=== PATIENT | male | born 1965 | race Caucasian/White ===

== ENCOUNTER 2021-12-23 07:11 | Outpatient (REF) | payer OTHER, SELFPAY ==
[2021-12-23 08:03] LABS: Hematocrit 48.6 % (42.0-52.0); Hemoglobin 16.5 g/dl (14.0-18.0); Mean Corpuscular Hemoglobin 32.9 pg (27.0-33.0); Mean Platelet Volume 9.7 fL (9.4-12.4); Platelet Count 184 X10*3/uL (160-400); Red Blood Count 5.01 X10*6/uL (4.60-5.80); Red Cell Distribution Width 11.7 % (11.0-16.0); White Blood Count 6.2 X10*3/uL (4.8-10.8)
[2021-12-23 08:27] LABS: Alanine Aminotransferase 64 U/L (0-40); Albumin Level 4.1 g/dL (3.5-5.0); Alkaline Phosphatase 84 U/L (39-117); Anion Gap 11 (12-20); Aspartate Amino Transferase 31 U/L (5-37); Bilirubin Direct 0.2 mg/dL (0.0-0.5); Bilirubin Total 0.6 mg/dL (0.0-1.0); Blood Urea Nitrogen 8 mg/dL (9-16); Calcium 9.5 mg/dL (8.4-10.2); Carbon Dioxide 29 mmol/L (22-29); Chloride 100 mmol/L (96-108); Cholesterol 136 mg/dL; Estimated Glomerular Filt Rate > 60; Glucose Random 349 mg/dL (60-115); HDL Cholesterol 27 mg/dL; Potassium 5.4 mmol/L (3.3-5.1); Sodium 135 mmol/L (135-145); Total Protein 6.9 g/dL (6.5-8.0); Triglycerides 481 mg/dL
[2021-12-23 08:49] LABS: Thyroid Stimulating Hormone 0.98 uIU/mL (0.32-4.0)
[2021-12-23 08:51] LABS: Appearance Urine CLEAR; Color Urine YELLOW; Glucose Urine UA >=1000 MG/DL (NEG); Leukocyte Esterase Urine NEG (NEG); Nitrite Urine NEG (NEG); Specific Gravity - Urine >= 1.030 (1.005-1.025); Urine Blood NEG (NEG); Urine Ketones NEG (NEG); Urine Protein NEG (NEG-TRACE)
[2021-12-23 09:13] LABS: Mucus Urine 2+ /LPF; RBC Urine 0 /HPF (0); Squamous Epithelial Cell Urine 1+ /LPF; WBC Urine 0 /HPF (0-4)
== END 2021-12-23 07:12 | disposition home or self-care (01) ==
LOC: HO.LAB 07:11
PROVIDERS: PCP Physician Assistant; Visit Provider Internal Medicine
DX: N50.89 Other specified disorders of the male genital organs (principal)
CPT/HCPCS: 36415; 80048; 80061; 80076; 81001; 84443; 85027

== ENCOUNTER 2021-12-30 10:27 | Outpatient (REF) | payer OTHER, SELFPAY ==
[2021-12-30 11:30] LABS: Estimated Average Glucose 289 mg/dL; Hemoglobin A1c % 11.7 %
== END 2021-12-30 10:28 | disposition home or self-care (01) ==
LOC: HO.LAB 10:27
PROVIDERS: PCP Physician Assistant; Visit Provider Physician Assistant
DX: R73.9 Hyperglycemia, unspecified (principal)
CPT/HCPCS: 36415; 83036

== ENCOUNTER 2022-01-25 15:19 | Outpatient (REF) | payer OTHER, SELFPAY ==
--- NOTE | ~2022-01-25 | US_ITS ---
EXAMINATION: US SCROTUM CLINICAL INFORMATION: Other specified disorders of the male genital organs. COMPARISON: None TECHNIQUE: A sonogram of the scrotum was performed assessing hatfield-scale appearance and color Doppler flow. Spectral Doppler analysis of the arterial and venous flow were performed in the testes bilaterally. FINDINGS: RIGHT: Right testicle measures 5.6 x 3.1 x 4.2 cm, volume 38.7 mL. No focal testicular parenchymal lesions are visualized. Color Doppler flow in the right testicle is slightly reduced compared to the left. Normal arterial and venous waveforms are documented and this may be due to the large hydrocele. There is a right appendix testis. No right varicocele is seen. There is a large right hydrocele. The right epididymis is not well visualized. LEFT: Left testicle measures 4.2 x 2.5 x 3.0 cm, volume 16.4 mL. No focal testicular parenchymal lesions are visualized. Spectral Doppler analysis of the arterial and venous flow is normal in the left testis. Left epididymal head is normal in size. There is a left appendix epididymis. No left varicocele is seen. There is a small left hydrocele. Left epididymal Doppler flow is normal. US/US scrotum doppler IMPRESSION: Large right hydrocele and small left hydrocele.
== END 2022-01-25 15:20 | disposition home or self-care (01) ==
LOC: HO.US 15:19
PROVIDERS: PCP Physician Assistant; Visit Provider Internal Medicine
DX: N50.89 Other specified disorders of the male genital organs (principal)
CPT/HCPCS: 93975

== ENCOUNTER 2022-03-07 09:24 | Emergency (ER) | payer OTHER, SELFPAY ==
--- NOTE | ~2022-03-07 | US_ITS ---
EXAMINATION: US SCROTUM CLINICAL INFORMATION: Swollen right testicle. Increased pain.. COMPARISON: Scrotal ultrasound 01/25/2022 TECHNIQUE: A sonogram of the scrotum was performed assessing hatfield-scale appearance and color Doppler flow. Spectral Doppler analysis of the arterial and venous flow were performed in the testes bilaterally. FINDINGS: RIGHT: Right testicle measures 5.3 x 1.8 x 4.1 cm, volume 20 mL. No focal testicular parenchymal lesions are visualized. Spectral Doppler analysis of the arterial and venous flow is demonstrated in the right testis. Right appendix testis is again noted. Right epididymis not clearly visualized. There is a large right-sided hydrocele which measures 13 cm in maximum dimension, grossly similar in size to imaging from January 25. There is skin thickening of the right hemiscrotum with associated edema. LEFT: Left testicle measures 4.1 x 2.6 x 2.7 cm, volume 15 mL. No focal testicular parenchymal lesions are visualized. Spectral Doppler analysis of the arterial and venous flow is normal in the left testis. Left appendix testis is again noted. Left epididymal head is normal in size. Tiny left-sided hydrocele. No varicocele. Left epididymal Doppler flow is normal. US/US scrotum doppler IMPRESSION: -Large right-sided hydrocele is again noted. There is overlying thickening of the right hemiscrotum with associated edema. -Both testicles demonstrate normal arterial and venous waveforms.
--- NOTE | ~2022-03-07 | US_ITS ---
EXAMINATION: US SCROTUM CLINICAL INFORMATION: Swollen right testicle. Increased pain.. COMPARISON: Scrotal ultrasound 01/25/2022 TECHNIQUE: A sonogram of the scrotum was performed assessing hatfield-scale appearance and color Doppler flow. Spectral Doppler analysis of the arterial and venous flow were performed in the testes bilaterally. FINDINGS: RIGHT: Right testicle measures 5.3 x 1.8 x 4.1 cm, volume 20 mL. No focal testicular parenchymal lesions are visualized. Spectral Doppler analysis of the arterial and venous flow is demonstrated in the right testis. Right appendix testis is again noted. Right epididymis not clearly visualized. There is a large right-sided hydrocele which measures 13 cm in maximum dimension, grossly similar in size to imaging from January 25. There is skin thickening of the right hemiscrotum with associated edema. LEFT: Left testicle measures 4.1 x 2.6 x 2.7 cm, volume 15 mL. No focal testicular parenchymal lesions are visualized. Spectral Doppler analysis of the arterial and venous flow is normal in the left testis. Left appendix testis is again noted. Left epididymal head is normal in size. Tiny left-sided hydrocele. No varicocele. Left epididymal Doppler flow is normal. US/US scrotum IMPRESSION: -Large right-sided hydrocele is again noted. There is overlying thickening of the right hemiscrotum with associated edema. -Both testicles demonstrate normal arterial and venous waveforms.
[2022-03-07 09:31] VITALS: BP 170/95; PULSE 108; RESP 18; TEMP 36.4; O2SAT 99; BMI 34.0
--- NOTE | 2022-03-07 10:27 | ED.MALEGU ---
HPI - Male Genitourinary General Chief complaint: Urogenital-Male <JOSE R Zepeda - Last Filed: 03/07/22 12:40> Stated complaint: SWOLLEN TESTICLE <JOSE R Zepeda Last Filed: 03/07/22 12:40> Time Seen by Provider: 03/07/22 09:43 <JOSE R Zepeda Last Filed: 03/07/22 12:40> Source: patient <JOSE R Zepeda Last Filed: 03/07/22 12:40> Mode of arrival: ambulatory <JOSE R Zepeda Last Filed: 03/07/22 12:40> History of Present Illness HPI Narrative: 56-year-old male with a past medical history of hydrocele's from US on 01/25/22, presenting to the ED complaining sudden onset right testicular pain and worsening swelling since 02:30AM. Admits pain has been constant since start, states feels like testicle is riding high. Admits has follow-up with Urology next month. Denies trauma/injury, penile discharge, dysuria/hematuria, abdominal pain, nausea, vomiting, flank pain <JOSE R Zepeda Last Filed: 03/07/22 12:40> MD Complaint: testicle pain and testicle swelling <JOSE R Zepeda Last Filed: 03/07/22 12:40> Onset (ago): hour(s) <JOSE R Zepeda Last Filed: 03/07/22 12:40> Duration: constant <JOSE R Zepeda Last Filed: 03/07/22 12:40> Related Data Home medications: Previous Rx's Medication Instructions Recorded atorvastatin 80 mg tablet 80 mg PO BEDTIME 90 Days #90 tab 03/20/21 fluticasone 250 mcg-salmeterol 50 1 inh INHALATION BID #60 ea 09/07/21 mcg/dose blistr powdr for inhalation (Advair Diskus) allopurinol 100 mg tablet 100 mg PO DAILY #90 tab 12/26/21 metformin 500 mg tablet 500 mg PO BID 30 Days #60 tab 01/01/22 cephalexin 500 mg capsule 500 mg PO QID 7 Days #28 cap 03/07/22 clotrimazole 1 % topical cream 1 appl TOPICAL BID 14 Days #30 g 03/07/22 (Lotrimin AF (clotrimazole)) metformin 500 mg tablet 500 mg PO BID 30 Days #60 tab 03/07/22 <JOSE R Zepeda - Last Filed: 03/07/22 12:40> Allergies/Adverse reactions: Allergies Allergy/AdvReac Type Severity Reaction Status Date / Time acetaminophen [Vicodin] Allergy Unknown upset Verified 02/02/22 11:50 stomach codeine [CODEINE] AdvReac Intermediate STOMACH Verified 02/02/22 11:50 UPSET hydrocodone [From VICODIN] AdvReac Intermediate STOMACH Verified 02/02/22 11:50 UPSET <JOSE R Zepeda Last Filed: 03/07/22 12:40> Review of Systems Review of Systems: Constitutional: No Fever, No Chills, No Fatigue, No Malaise ENT/Mouth: No Ear Pain, No Nasal Congestion, No sore throat, No Swallowing Difficulty Eyes: No Eye Pain, No Swelling, No Redness Cardiovascular: No Chest Pain, No SOB, No Palpitations Respiratory: No Cough, No Dyspnea Gastrointestinal: No Nausea, No Vomiting, No Diarrhea, No Constipation, No Abdominal pain Genitourinary: +testicular/scrotal swelling, +testicular pain, No penile discharge, No Dysuria, No Hematuria, No Urinary Incontinence/retention, No Flank Pain, No Urinary Flow Changes Musculoskeletal: No joint pain, No Myalgias, No Joint Swelling Skin: No Skin Lesions, No rash Neuro: No Weakness, No Numbness, No Headache <JOSE R Zepeda Last Filed: 03/07/22 12:40> Yes all other systems are reviewed and are negative <JOSE R Zepeda Last Filed: 03/07/22 12:40> [facility] Past Medical History Attestation statement: The following information was validated with the patient. <JOSE R Zepeda Last Filed: 03/07/22 12:40> Medical History: Medical History Left hydrocele <JOSE R Zepeda Last Filed: 03/07/22 12:40> Surgical History: Surgical History History of carpal tunnel release <JOSE R Zepeda - Last Filed: 03/07/22 12:40> Family History Family History: Family History Father No problems noted. 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 Cognitive needs: No Hearing needs: No Vision needs: Yes (Glasses) <JOSE R Zepeda - Last Filed: 03/07/22 12:40> Physical Exam Vital Signs: Vital Signs: Last Vital Signs Temp 97.6 F 03/07/22 09:31 Pulse 108 H 03/07/22 09:31 Resp 18 03/07/22 09:31 BP 170/95 H 03/07/22 09:31 Pulse Ox 99 03/07/22 09:31 BMI result Body Mass Index 34.0 <JOSE R Zepeda - Last Filed: 03/07/22 12:40> Vital Signs: Last Vital Signs Temp 97.6 F 03/07/22 09:31 Pulse 108 H 03/07/22 09:31 Resp 18 03/07/22 09:31 BP 170/95 H 03/07/22 09:31 Pulse Ox 99 03/07/22 09:31 BMI result Body Mass Index 34.0 <Fredo Dove MD - Last Filed: 03/07/22 12:24> Const: General: cooperative, healthy appearing and no acute distress <JOSE R Zepeda - Last Filed: 03/07/22 12:40> Orientation/consciousness: patient oriented x3 <JOSE R Zepeda - Last Filed: 03/07/22 12:40> Limitations: no limitations <JOSE R Zepeda - Last Filed: 03/07/22 12:40> HEENT: Head: Yes normal to inspection and Yes atraumatic <JOSE R Zepeda - Last Filed: 03/07/22 12:40> Ears: hearing grossly normal bilaterally <JOSE R Zepeda - Last Filed: 03/07/22 12:40> General nose exam: Normal external nose present <JOSE R Zepeda Last Filed: 03/07/22 12:40> Face and sinus: Yes normal facial exam <JOSE R Zepeda - Last Filed: 03/07/22 12:40> Eyes: General: appearance normal, both eyes and all related structures <JOSE R Zepeda Last Filed: 03/07/22 12:40> EOM: EOMs intact bilaterally <JOSE R Zepeda - Last Filed: 03/07/22 12:40> Neck: Neck: Yes normal visual inspection and Yes no meningeal signs <JOSE R Zepeda - Last Filed: 03/07/22 12:40> Resp: Effort & Inspection: normal respiratory effort and no respiratory distress <Angie Akers OR - Last Filed: 03/07/22 12:40> Cardio: Rate: regular rate <JOSE R Zepeda - Last Filed: 03/07/22 12:40> Heart sounds: S1 normal heart sound present and S2 normal heart sound present <Angie Akers [facility] Last Filed: 03/07/22 12:40> GI: Inspection: Yes normal to inspection <Angie Akers [facility] Last Filed: 03/07/22 12:40> Palpation (GI): Soft to palpation, nontender, no guarding and not rigid <JOSE R Zepeda - Last Filed: 03/07/22 12:40> : Penis: circumcised, erythematous, Localized penile swelling present and other (+skin thickening and cracking to neck of glans) <JOSE R Zepeda - Last Filed: 03/07/22 12:40> Meatus: meatus normal <JOSE R Zepeda - Last Filed: 03/07/22 12:40> Scrotum: no ecchymosis, erythematous bilateral, Hydrocele present bilateral (>right), no masses, scrotal swelling on the right and no ulcerations <JOSE R Zepeda - Last Filed: 03/07/22 12:40> Testes: testicular tenderness on the right and high-riding testicle on the right <JOSE R Zepeda Last Filed: 03/07/22 12:40> Skin: Rashes: no rashes <JOSE R Zepeda Last Filed: 03/07/22 12:40> Wounds: no wounds <JOSE R Zepeda Last Filed: 03/07/22 12:40> Neuro: General: patient oriented x3, tone normal and no meningeal signs <JOSE R Zepeda - Last Filed: 03/07/22 12:40> Gait exam (Neuro): Normal gait present <JOSE R Zepeda Last Filed: 03/07/22 12:40> Extrem: General: Yes normal to inspection <JOSE R Zepeda Last Filed: 03/07/22 12:40> Course Course Course Narrative: -UA with greater than 1000 ketones. Not infected. (similar to prior UA in December) > will obtain POC - POC 368, patient asymptomatic, states was prescribed metformin by PCP however is non compliant. Stressed importance of compliance with metformin with patient in needed close follow-up with his PCP for repeat glucose and monitoring. Low concern for DKA/ HHS >> patient given 1st dose of metformin and Keflex in the ED US scrotum IMPRESSION: -Large right-sided hydrocele is again noted. There is overlying thickening of the right hemiscrotum with associated edema. -Both testicles demonstrate normal arterial and venous waveforms. > case discussed with Dr. Dove who also evaluated patient and agrees with plan, will DC patient home with treatment for cellulitis, Gaby and new prescription for metformin <JOSE R Zepeda - Last Filed: 03/07/22 12:40> Reevaluation(s) Reevaluation #1: I agree with history and my exam is Obese Patient with right large hydrocele, cellulitis and candidal balanitis. Will treat with Keflex, lotrimin and make sure the patient starts glucophage. <Fredo Dove MD - Last Filed: 03/07/22 12:24> Time: 12:24 <Fredo Dove MD - Last Filed: 03/07/22 12:24> MDM - Male Genitourinary MDM Narrative Medical decision making narrative: 56-year-old male with a past medical history of hydrocele's from US on 01/25/22, presenting to the ED complaining sudden onset right testicular pain and worsening swelling since 02:30AM. On exam tachycardic likely from pain, physical exam as above with noted diffuse erythema to penis and bilateral scrotum, high-riding right testicle with tenderness and large right hydrocele. No evidence of Jose Raul gangrene. Abdomen soft/nontender. Concern for testicular torsion vs hydrocele vs epididymitis/orchitis vs cellulitis vs fungal infection Low concern for severe sepsis Plan: CT NG, UA, scrotal ultrasound <JOSE R Zepeda - Last Filed: 03/07/22 12:40> Differential Diagnosis Differential diagnosis: Likely epididymitis <JOSE R Zepeda - Last Filed: 03/07/22 12:40> Medical Records Attestation: I reviewed the patient's medical records. <JOSE R Zepeda - Last Filed: 03/07/22 12:40> Lab Data Attestation: I reviewed the patient's lab results. <JOSE R Zepeda - Last Filed: 03/07/22 12:40> Labs: Lab Results 03/07/22 03/07/22 Range/Units 11:01 12:08 POC Glucose 368 H* (60-115) mg/dL Urine Color STRAW Urine Appearance CLEAR Urine pH 6.0 (5.0-8.0) Ur Specific [place] 1.010 (1.005-1.025) Urine Protein NEG (NEG-TRACE) MG/DL Urine Glucose (UA) >=1000 H (NEG) MG/DL Urine Ketones NEG (NEG) MG/DL Urine Blood NEG (NEG) Urine Nitrite NEG (NEG) Ur Leukocyte Esterase NEG (NEG) Urine RBC 0 (0) /HPF Urine WBC 0-2 (0-4) /HPF Ur Squamous Epith Cells TRACE /LPF Urine Bacteria NONE /LPF <JOSE R Zepeda - Last Filed: 03/07/22 12:40> Lab Results 03/07/22 03/07/22 Range/Units 11:01 12:08 POC Glucose 368 H* (60-115) mg/dL Urine Color STRAW Urine Appearance CLEAR Urine pH 6.0 (5.0-8.0) Ur Specific [place] 1.010 (1.005-1.025) Urine Protein NEG (NEG-TRACE) MG/DL Urine Glucose (UA) >=1000 H (NEG) MG/DL Urine Ketones NEG (NEG) MG/DL Urine Blood NEG (NEG) Urine Nitrite NEG (NEG) Ur Leukocyte Esterase NEG (NEG) Urine RBC 0 (0) /HPF Urine WBC 0-2 (0-4) /HPF Ur Squamous Epith Cells TRACE /LPF Urine Bacteria NONE /LPF <Fredo Dove MD - Last Filed: 03/07/22 12:24> Discharge Plan Discharge Clinical Impression: Candidal balanitis, Cellulitis of scrotum, Acute hyperglycemia <JOSE R Zepeda - Last Filed: 03/07/22 12:40> Patient Disposition: Home, Self-Care <JOSE R Zepeda - Last Filed: 03/07/22 12:40> Instructions: Hydrocele (ED), Cellulitis (DC), Balanitis (ED) <JOSE R Zepeda - Last Filed: 03/07/22 12:40> Additional Instructions: Your glucose is very high today, you need to start taking metformin as previously prescribed. You need to monitor your food intake, avoid sugars/carbs You have an infection of your scrotum both bacterial and fungal, Keflex and clotrimazole will treat these infections. You also have a large right hydrocele, you need to follow-up with Urology. If pain worsens/persist area becomes more swollen, more red, you fever, difficulty urinating please return to the ED immediately You need to follow-up with her primary care doctor in 5-7 days for re-evaluation <JOSE R Zepeda - Last Filed: 03/07/22 12:40> Prescriptions: New cephalexin 500 mg capsule 500 mg PO QID 7 Days Qty: 28 0RF metformin 500 mg tablet 500 mg PO BID 30 Days Qty: 60 0RF clotrimazole [Lotrimin AF (clotrimazole)] 1 % cream 1 appl topical BID 14 Days Qty: 30 0RF No Action atorvastatin 80 mg tablet 80 mg PO BEDTIME 90 Days Qty: 90 3RF fluticasone propion-salmeterol [Advair Diskus] 250-50 mcg/dose blister with device 1 inh inhalation BID Qty: 60 3RF allopurinol 100 mg tablet 100 mg PO DAILY Qty: 90 1RF metformin 500 mg tablet 500 mg PO BID 30 Days Qty: 60 3RF <JOSE R Zepeda - Last Filed: 03/07/22 12:40> Referrals: Deni Gates MD [Physician] - 5 days Quincy Mchugh PA-C [Primary Care Provider] - 1 week <JOSE R Zepeda - Last Filed: 03/07/22 12:40>
[2022-03-07 11:18] LABS: Appearance Urine CLEAR; Color Urine STRAW; Glucose Urine UA >=1000 MG/DL (NEG); Leukocyte Esterase Urine NEG (NEG); Nitrite Urine NEG (NEG); Urine Blood NEG (NEG); Urine Ketones NEG (NEG); Urine Protein NEG (NEG-TRACE)
[2022-03-07 11:28] LABS: Squamous Epithelial Cell Urine TRACE /LPF; WBC Urine 0-2 /HPF (0-4)
[2022-03-07 11:29] LABS: RBC Urine 0 /HPF (0)
[2022-03-07 12:13] LABS: Glucose, Whole Blood 368 mg/dL (60-115)
[2022-03-07] MEDS: cephALEXin 500 MG CAPSULE PO (12:31)
[2022-03-07] MEDS: metFORMIN HCl 500 MG TABLET PO (12:31)
[2022-03-07 14:32] LABS: CT PCR NOT DETECTED (Not Detect.); NG PCR NOT DETECTED (Not Detect.)
== END 2022-03-07 12:51 | disposition home or self-care (01) ==
PROVIDERS: Emergency Medicine; Physician Assistant; Emergency Provider Emergency Medicine; PCP Physician Assistant
DX: B37.42 Candidal balanitis (principal); N49.2 Inflammatory disorders of scrotum; R73.9 Hyperglycemia, unspecified; N43.3 Hydrocele, unspecified; Z91.14 Patient's other noncompliance with medication regimen
CPT/HCPCS: 76870; 81001; 82947; 87491; 87591; 93975; 99284

== ENCOUNTER 2022-05-28 09:54 | Day surgery (SDC) | payer OTHER, SELFPAY ==
[2022-05-22 15:33] VITALS: BMI 31.6
[2022-05-24 10:06] VITALS: BMI 31.4
--- NOTE | 2022-05-25 12:27 | HO.ANESPROP2 ---
Documented by User: Danita Johnson NP 05/25/22 12:29 HPI - Anesthesia Eval Consult details Narrative: 56yo M for Right Hydrocele Repair PMFSH Active Problems Active Problems: All Active Problems (Updated 05/24/22 @ 10:04 by Lucinda Rooney RN) Mild persistent asthma (Acute) HLD (hyperlipidemia) (Acute) Asthma exacerbation (Acute) HTN (hypertension) (Acute) Gout (Acute) Mass, scrotum (Acute) Elevated blood sugar (Acute) DMII (diabetes mellitus, type 2) (Acute) Cellulitis of penis (Acute) Hydrocele (Acute) Left hydrocele (Acute) Past Medical History Medical History Asthma DMII (diabetes mellitus, type 2) Gout History of CVA (cerebrovascular accident) without residual deficits HLD (hyperlipidemia) HTN (hypertension) Hyperactive gag reflex Left hydrocele Family History Family History Father No problems noted. Mother Cancer Son In good health Surgical History Surgical History History of carpal tunnel release History of carpal tunnel surgery of left wrist History of surgery on wrist Social History Social History Housing: House Are you a primary daycare manager to a significant other at home: No Do you presently have visiting nurse or other home services: No Alcohol intake: current Alcohol intake frequency: a few times a week Patient Tobacco Use Status: Current everyday Tobacco user Tobacco use type: Cigarette Cigarettes Per Day: 3 Smoked in Last 30 Days: Yes e-Cigarette/Vaping Use: Never Used Patient Interested in Nicotine Replacement: No Second Hand Smoke Exposure: No Have you been hit, kicked, punched, or otherwise hurt by someone within the past year? 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 Cognitive needs: No Hearing needs: No Vision needs: Yes (Glasses) Meds Allergies Allergy/AdvReac Type Severity Reaction Status Date / Time codeine [CODEINE] AdvReac Intermediate STOMACH Verified 05/28/22 11:30 UPSET hydrocodone [From VICODIN] AdvReac Intermediate STOMACH Verified 05/24/22 10:05 UPSET Exam Exam Date and Time: May 25, 2022 1227 Height,Weight and Vital Signs: Height 6 ft 2 in Weight 111.13 kg Pertinent Lab Results Pertinent Lab Results: Laboratory Tests 12/23/21 12/23/21 07:33 07:33 WBC 6.2 Hgb 16.5 Hct 48.6 Plt Count 184 Sodium 135 Potassium 5.4 H Chloride 100 Carbon Dioxide 29 BUN 8 L Creatinine 1.14 Assessment and Plan Assessment Anesthesia Assessment: Chart Reviewed Documented by User: Frank Huggins MD 05/28/22 13:00 [facility] Past Medical History Medical History Asthma DMII (diabetes mellitus, type 2) Gout History of CVA (cerebrovascular accident) without residual deficits HLD (hyperlipidemia) HTN (hypertension) Hyperactive gag reflex Left hydrocele Family History Family History Father No problems noted. Mother Cancer Son In good health Family history of problems with anesthesia: No Surgical History Surgical History History of carpal tunnel release History of carpal tunnel surgery of left wrist History of surgery on wrist History of Problems with Anesthesia: No Social History Social History Housing: House Are you a primary daycare manager to a significant other at home: No Do you presently have visiting nurse or other home services: No Alcohol intake: current Alcohol intake frequency: a few times a week Patient Tobacco Use Status: Current everyday Tobacco user Tobacco use type: Cigarette Cigarettes Per Day: 3 Smoked in Last 30 Days: Yes e-Cigarette/Vaping Use: Never Used Patient Interested in Nicotine Replacement: No Second Hand Smoke Exposure: No Have you been hit, kicked, punched, or otherwise hurt by someone within the past year? 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 [employer] Cognitive needs: No Hearing needs: No Vision needs: Yes (Glasses) Meds Allergies Allergy/AdvReac Type Severity Reaction Status Date / Time codeine [CODEINE] AdvReac Intermediate STOMACH Verified 05/28/22 11:30 UPSET hydrocodone [From VICODIN] AdvReac Intermediate STOMACH Verified 05/24/22 10:05 UPSET Exam Airway Mallampati Class: III TM Dist: >3cm Neck ROM: Full Denture: Lower Partial: Upper Loose/Missing/Broken Teeth: Yes and Upper Heart: rrr Lungs: clear Assessment and Plan Final Anesthetic Review Family History of Problems with Anesthesia: No History of Problems with Anesthesia: No NPO: Yes ASA Class: III Final Preanesthetic Review: No Changes in Pt Med Stat, Meds/Allgs Chart Reviewed, Consent Obtained/Reviewed and Anes Risks/Benef Reviewed Patient Risk: Intermediate Procedure Risk: Low Anesthetic Plan Anesthetic Plan: GA Disposition: Standard PACU
[2022-05-28 11:23] VITALS: BP 139/92; PULSE 60; RESP 18; TEMP 36.8; O2SAT 99
[2022-05-28 11:45] LABS: Glucose, Whole Blood 178 mg/dL (60-115)
[2022-05-28] MEDS: Lactated Ringers 1,000 ML 100 ML IVCONT (11:57)
--- NOTE | 2022-05-28 12:51 | MHC.SHP ---
Pre-Procedural Eval Section A Date of Service: 05/28/22 The patient is an INPATIENT: No Changes since office visit: No Cold of Flu in the past 2 weeks, No New Medical Problems, No Changes in Medication and No Patient answered all questions The History & Physical has been completed within 30 days and I have reviewed it.: Yes Section B Chief Complaint: hydrocele Details of Present Illness: right large hydrocele Relevant Social History: None Present Medications: see Short Stay Collaborative assessment Medical History: No relevant PMH History of Previous Operations: No relevant previous surgery Allergies: Allergies Allergy/AdvReac Type Severity Reaction Status Date / Time codeine [CODEINE] AdvReac Intermediate STOMACH Verified 05/28/22 11:30 UPSET hydrocodone [From VICODIN] AdvReac Intermediate STOMACH Verified 05/24/22 10:05 UPSET Review of Systems Sugical H&P ROS: Negative: Constitution, Cardiovascular, Respiratory, Neurological, Psychiatric, Hem-Onc, Allergic/Immunologic, Gastrointestinal, Genitourinary, Musculoskeletal, Integumentary, Endocrine and Eyes/Ears/Nose/Throat Exam Surgical H&P Exam: Normal: HEENT, Normal: Heart, Normal: Lungs, Normal: Extremities, Normal: Abdomen, Normal: Skin and Normal: Neurological Plan Diagnosis/Plan: Unchanged (right hydrocelectomy with drain placement) I have reviewed the history and physical and performed a pertinent physical examination on my patient. No changes have occurred unless specified.
[2022-05-28 14:18] VITALS: BP 129/95; PULSE 71; RESP 16; TEMP 36.3; O2SAT 97
[2022-05-28 14:23] VITALS: BP 123/96; PULSE 65; RESP 16; O2SAT 96
[2022-05-28 14:28] VITALS: BP 144/88; PULSE 66; RESP 16; O2SAT 96
--- NOTE | 2022-05-28 14:30 | W.PM.OPN ---
Operative Note Operative Note Date of Service: 05/28/22 Narrative: PreOperative Diagnosis: right hydrocele Post Operative Diagnosis: right hydrocele Procedure: Hydrocelectomy with drain Surgeon: Dr Deni Gates Anesthesia: General Indications for procedure: large right hydrocele with persistent discomfort during work Procedure: After informed consent was verified the patient was brought to the operating room and placed in a supine position. Anesthesia was administered per protocol. Patient was appropriately shaved and genitals were prepped and draped in sterile fashion. Safety pause time-out was performed. Antibiotics being given. Local anesthetic was infiltrated under the skin in a horizontal fashion on the scrotum. Skin incision was made using a blade through the subdermal layer. The tunica around the testicle was elevated and dissected free from surrounding tissue. Due to the large size of the hydrocele stay sutures were placed to elevate the hydrocele sac. Dissection was performed around the avascular plane. The sac was opened sharply and over 250 cc of Fluid was removed. dissection was then performed with a deflated sac in order to minimize trauma to scrotum. The sac was opened in a longitudinal fashion and using a Thunderbeat cautery instrument the excess inflamed hydrocele sac was removed. The testicle sac was inverted and a bottle neck procedure was performed using a running 3-0 Vicryl suture. Small accessory appendices were removed from the head of epididymis. The testicle was placed back into a dependent portion of the scrotum. a snap was placed through the dependent portion of the scrotum and a quarter-inch Low drain brought into the scrotum and trimmed. The overlying fascia layer was closed with a running 3-0 Vicryl suture. Skin was closed with interrupted 4-0 chromic sutures. the drain was sewn into a fluff dressing to be removed in 48 hours. Further fluff dressings were placed and a mesh pants were used for stability. Patient tolerated procedure well was extubated in operating room transferred in stable condition to the recovery area Pathology: Hydrocele sac Drains: Quarter-inch [place]
[2022-05-28 14:33] VITALS: BP 149/86; PULSE 71; RESP 16; TEMP 36.2; O2SAT 99
== END 2022-05-28 15:06 | disposition home or self-care (01) ==
PROVIDERS: PCP Physician Assistant; Visit Provider Urology
PROC: (CPT 55060; principal; 2022-05-28 12:10)
DX: N43.3 Hydrocele, unspecified (principal); I10 Essential (primary) hypertension; J45.30 Mild persistent asthma, uncomplicated; E78.5 Hyperlipidemia, unspecified; M10.9 Gout, unspecified; J39.2 Other diseases of pharynx; E11.9 Type 2 diabetes mellitus without complications; Z79.84 Long term (current) use of oral hypoglycemic drugs; Z79.899 Other long term (current) drug therapy; Z88.8 Allergy status to other drugs, medicaments and biological substances; Z86.73 Personal history of transient ischemic attack (TIA), and cerebral infarction without residual deficits; F17.210 Nicotine dependence, cigarettes, uncomplicated
CPT/HCPCS: 55040; 82947; 88302; J0690; J1100; J2250; J2405; J2795; J3010

== ENCOUNTER 2022-06-28 10:54 | Outpatient (REF) | payer OTHER, SELFPAY ==
--- NOTE | ~2022-06-28 | US_ITS ---
EXAMINATION: US SCROTUM CLINICAL INFORMATION: Post surgery for right hydrocele. COMPARISON: Previous scrotal ultrasound most recent March 2022 TECHNIQUE: A sonogram of the scrotum was performed assessing hatfield-scale appearance and color Doppler flow. Spectral Doppler analysis of the arterial and venous flow were performed in the testes bilaterally. FINDINGS: RIGHT: Right testicle measures 4 x 2 x 3 cm, volume 13 mL. No focal testicular parenchymal lesions are visualized. Spectral Doppler analysis of the arterial and venous flow is seen in the right testicle. This does appear slightly decreased compared to the contralateral left side. This finding is similar to previous exams. The right epididymis is enlarged and heterogeneous and hypervascular. There is a large complex fluid collection surrounding the right testicle. Differential would include hematoma and abscess. There is right scrotal skin thickening. LEFT: Left testicle measures 4.5 x 2.6 x 2.3 cm, volume 14 mL. No focal testicular parenchymal lesions are visualized. Spectral Doppler analysis of the arterial and venous flow is normal in the left testis. There is a left appendix testis. Left epididymal head is normal in size. There is a small left hydrocele. No left varicocele is seen. Left epididymal Doppler flow is normal. US/US scrotum IMPRESSION: Large complex fluid collection surrounding the right testicle. Differential would include hematoma and abscess. Enlarged heterogeneous hypervascular epididymis. Appearance is questionable for epididymitis. Marked right scrotal skin thickening. Decreased arterial and venous flow the right testicle compared to the left side. This is similar to preoperative exam. Small left hydrocele. Findings will be communicated by the [facility] work flow consulting it architect.
== END 2022-06-28 10:55 | disposition home or self-care (01) ==
LOC: HO.HMGCX 10:54
PROVIDERS: Visit Provider Urology
DX: N43.3 Hydrocele, unspecified (principal); N50.89 Other specified disorders of the male genital organs
CPT/HCPCS: 76870

== ENCOUNTER 2022-09-29 06:55 | Outpatient (REF) | payer OTHER, SELFPAY ==
[2022-09-29 07:56] LABS: Estimated Average Glucose 275 mg/dL; Hemoglobin A1c % 11.2 %
[2022-09-29 08:53] LABS: Alanine Aminotransferase 41 U/L (0-40); Albumin Level 3.9 g/dL (3.5-5.0); Alkaline Phosphatase 65 U/L (39-117); Anion Gap 14 (12-20); Aspartate Amino Transferase 19 U/L (5-37); Bilirubin Total 0.6 mg/dL (0.0-1.0); Blood Urea Nitrogen 10 mg/dL (9-16); Calcium 9.2 mg/dL (8.4-10.2); Carbon Dioxide 27 mmol/L (22-29); Chloride 100 mmol/L (96-108); Cholesterol 163 mg/dL; Estimated Glomerular Filt Rate > 60; Glucose Fasting 293 mg/dL (60-99); HDL Cholesterol 28 mg/dL; Sodium 136 mmol/L (135-145); TSH reflex Free T4 2.29 uIU/mL (0.32-4.0); Total Protein 6.7 g/dL (6.5-8.0); Triglycerides 527 mg/dL
[2022-09-29 09:34] LABS: Creatinine Urine 120.67 mg/dL; Microalbum/Creatinine Ratio Ur 32.3 ug/mg cr
== END 2022-09-29 06:56 | disposition home or self-care (01) ==
LOC: HO.LAB 06:55
PROVIDERS: PCP Physician Assistant; Visit Provider Physician Assistant
DX: I10 Essential (primary) hypertension (principal); R73.9 Hyperglycemia, unspecified; Z12.5 Encounter for screening for malignant neoplasm of prostate
CPT/HCPCS: 36415; 80053; 80061; 82043; 83036; 84153; 84443

== ENCOUNTER → 2022-11-06 13:19 | Outpatient (BNVA) | payer OTHER, SELFPAY | PROVIDERS: PCP Physician Assistant; Visit Provider Urology | DX: Z13.89 Encounter for screening for other disorder (principal) ==

== ENCOUNTER 2023-03-30 07:09 | Outpatient (REF) | payer OTHER, SELFPAY ==
[2023-03-30 08:08] LABS: Hematocrit 46.1 % (42.0-52.0); Mean Corpuscular HGB Conc 34.7 g/dl (31.0-36.0); Mean Corpuscular Volume 97.9 fL (80.0-98.0); Mean Platelet Volume 9.9 fL (9.4-12.4); Platelet Count 176 X10*3/uL (160-400); Red Blood Count 4.71 X10*6/uL (4.60-5.80); Red Cell Distribution Width 11.9 % (11.0-16.0); White Blood Count 5.7 X10*3/uL (4.8-10.8)
[2023-03-30 08:19] LABS: Estimated Average Glucose 157 mg/dL; Hemoglobin A1c % 7.1 %
[2023-03-30 08:34] LABS: Alanine Aminotransferase 42 U/L (0-40); Albumin Level 4.2 g/dL (3.5-5.0); Alkaline Phosphatase 42 U/L (39-117); Anion Gap 11 (12-20); Aspartate Amino Transferase 25 U/L (5-37); Bilirubin Total 0.7 mg/dL (0.0-1.0); Blood Urea Nitrogen 12 mg/dL (9-16); Calcium 9.2 mg/dL (8.4-10.2); Carbon Dioxide 29 mmol/L (22-29); Chloride 104 mmol/L (96-108); Cholesterol 134 mg/dL; Estimated Glomerular Filt Rate > 60; Glucose Fasting 179 mg/dL (60-99); HDL Cholesterol 31 mg/dL; LDL Cholesterol Calculated 31 mg/dl; Potassium 4.7 mmol/L (3.3-5.1); Sodium 139 mmol/L (135-145); Triglycerides 362 mg/dL
[2023-03-30 08:53] LABS: Prostate Specific Antigen Scr 0.22 ng/mL (<0.05-4.0)
== END 2023-03-30 07:10 | disposition home or self-care (01) ==
LOC: HO.LAB 07:09
PROVIDERS: PCP Physician Assistant; Visit Provider Physician Assistant
DX: Z12.5 Encounter for screening for malignant neoplasm of prostate (principal); E11.9 Type 2 diabetes mellitus without complications; Z86.73 Personal history of transient ischemic attack (TIA), and cerebral infarction without residual deficits
CPT/HCPCS: 36415; 80053; 80061; 83036; 84153; 85027

== ENCOUNTER 2023-11-27 15:13 | Outpatient (AMB) | payer OTHER, SELFPAY ==
[2023-11-27 15:18] VITALS: BP 138/82; PULSE 84; O2SAT 97; BMI 33.4
--- NOTE | 2023-11-27 15:18 | A.OFFPC_ITS ---
Vital Signs 11/27/23 15:18 Height 6 ft 2 in Weight 260 lb BMI 33.4 BP 138/82 Blood Pressure Location Lt brachial Position Sitting Pulse 84 Pulse Source Pulse Oximeter Pulse Oximetry (%) 97 Oxygen Delivery Method Room Air Intake Visit Reasons: F/U DMII & HTN Allergies codeine [CODEINE] Adverse Reaction (Intermediate, Verified 11/27/23 15:24) STOMACH UPSET hydrocodone [From VICODIN] Adverse Reaction (Intermediate, Verified 11/27/23 15:24) STOMACH UPSET Medication List - Last Reconciled 11/27/23 by Quincy Mchugh PA-C aspirin 81 mg PO DAILY atorvastatin 80 mg PO BEDTIME 90 days blood pressure test kit-large As directed cetirizine 10 mg PO DAILY 90 days fluticasone propion-salmeterol 250-50 mcg/dose (Advair Diskus) 1 inh inhalation BID lisinopril 20 mg PO DAILY 90 days metformin 1,000 mg PO BID 90 days Tobacco use date assessed: 11/27/23 Dental Screening Dental Screen Date: 11/27/23 HPI F/U DMII & HTN HPI Details Patient is a 57 year-old male here today for a follow-up visit.? Patient has a past medical history significant for asthma, obesity, hypertension, type 2 diabetes, CVA (2019) .. Concern--> reports having left knee pain over the last month. He attributes this to perhaps the weather. He denies any trauma to his left knee. .. Tobacco dependency:? Unfortunately patient has started smoking again and reports 5-8 cigarettes per day at work.? He is not interested in nicotine replacement. .. Hypertension:? Blood pressure acceptable today in office. He denies any chest discomfort, headaches, vision issues.. Will continue lisinopril 20 mg .. Type 2 diabetes: Patient type 2 diabetes has been suboptimally controlled. Today's A1c is 7.2. He does admit to dietary indiscretion. PLAN: Will work on diabetic dietary modifications, will continue maximum dose metformin. .. CVA:? Patient did have acute CVA and 2020, has no further neurological deficits.? Will continue to manage risk factors .. Asthma:? Continues on maintenance inhaler on a daily basis with good control over his mild intermittent asthma.? .. Obesity:? Patient does understand his BMI is over 30.? He has been trying to be more physically active to help reduce his weight.? [facility] Medical History (Updated 11/27/23 @ 15:34 by Quincy Mchugh PA-C) Asthma Hyperactive gag reflex History of CVA (cerebrovascular accident) without residual deficits Hydrocele DMII (diabetes mellitus, type 2) Gout HTN (hypertension) HLD (hyperlipidemia) Surgical History History of surgery on wrist History of carpal tunnel surgery of left wrist History of carpal tunnel release Family History Father No problems noted. 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 How often do you have a drink containing alcohol?: 2-3 times a week 2. How many drinks containing alcohol do you have on a typical day when you are drinking?: 3 or 4 3. How often do you have six or more drinks on one occasion?: Weekly Total Score: 7 RADHA-7 AMB Questionnaire RADHA-7 Date RADHA - 7 assessed: 11/27/23 Source: Developed by Drs. Dev Sutton, Taylor Biggs, Wilbert Deluna and colleagues, with an educational selam from [employer]. Review of Systems Const Denies headache(s) Eyes Denies loss of vision ENT Denies vertigo, Denies dizziness, Denies headache(s) and Denies sore throat Card Denies chest pain, Denies leg edema and Denies lightheadedness Resp Denies cough, Denies hemoptysis and Denies wheezing GI Denies abdominal pain, Denies melena, Denies constipation, Denies diarrhea and Denies vomiting Denies dysuria, Denies urinary frequency and Denies urinary urgency Musc Denies arthralgias, Denies joint swelling, Denies numbness and Denies tingling Neuro Denies Abnormal speech present, Denies behavioral changes, Denies vertigo, Denies dizziness, Denies headache(s), Denies loss of vision, Denies memory loss, Denies numbness and Denies tingling Psych Denies anxiety, Denies behavioral changes, Denies depression, Denies memory loss and Denies panic attacks Tai/Lymph Denies easy bleeding and Denies easy bruising Aller/Immun Denies wheezing Physical exam (Primary Care) Vital Signs: Last Vital Signs Pulse 84 11/27/23 15:18 BP 138/82 11/27/23 15:18 Pulse Ox 97 11/27/23 15:18 Oxygen Delivery Method Room Air 11/27/23 15:18 BMI result Body Mass Index 33.4 BMI Assessment/Plan discussion: High Tobacco/Smoking Status: Tobacco use Status Tobacco use date assessed 11/27/23 11/27/23 15:22 Patient Tobacco Use Status Current everyday Tobacco 11/27/23 15:22 Tobacco use type Cigarette 11/27/23 15:22 e-Cigarette/Vaping Use Never Used 11/27/23 15:22 Are you ready to quit: No Tobacco cessation counseling provided: Yes Items discussed: Nicotine replacement and QuitWorks Relapse Prevention: discussed the importance of a supportive environment, discussed negative mood or depression after quitting, weight gain after smoking is common and discussed dietary, exercise and/or lifestyle changes Number of minutes spent counselin Thrive Assessment: Date of Thrive Assessment Date Thrive assessed 11/27/23 11/27/23 15:22 Const Other: Obese General: healthy appearing, no acute distress, alert and awake Nutritional Appearance: well nourished Orientation/consciousness: oriented to person, oriented to place and oriented to time [facility] Ears: TM's normal bilaterally General nose exam: Normal nasal mucous membranes and turbinates present Eyes Conjunctivae: conjunctivae normal Sclerae: sclerae normal Pupils: Equal, round and reactive pupils present Neck Neck: Yes no lymphadenopathy and Yes no JVD Thyroid: Thyroid normal Carotids: no bruits Resp Effort & Inspection: normal respiratory effort and not tachypneic Auscultation: no crackles, no rales, no rhonchi and no wheezes Cardio Rate: regular rate Rhythm: regular rhythm Heart sounds: no murmurs and normal S1 and S2 GI Palpation (GI): Soft to palpation, nontender, no hepatomegaly and no spl enomegaly Auscultation: normal bowel sounds Skin General skin exam: no rashes or lesions noted and dry skin Neuro General: oriented to person, oriented to place and oriented to time Cranial nerves: Yes Equal, round and reactive pupils present Speech: No Abnormal speech present Gait exam (Neuro): Normal gait present Motor exam (neuro): no tremor noted Extrem Right upper extremity: full ROM Left upper extremity: full ROM Right lower extremity: full ROM; no edema Left lower extremity: full ROM; no edema Psych Mental Status: mental status grossly normal Speech and movement: Normal speech and movement present Affect: normal affect Attitude: cooperative Thought process: Normal thought process present Results AMB Hemoglobin A1c AMB Hemoglobin A1c 7.3 % Last Edit by CAROLINA Moseley on 11/27/23 15:26 Results Reviewed Results Reviewed: Laboratory Last Values Hgb A1c (Clinic) 7.3 % (4.0-6.0) H 11/27/23 15:26 Assessment and Plan Assessment & Plan (1) DMII (diabetes mellitus, type 2): Code(s): E11.9 - Type 2 diabetes mellitus without complications Qualifiers: Diabetes mellitus complication status: with hyperglycemia Diabetes mellitus intermediate insulin use: without terminal block assembler use Qualified Code(s): E11.65 - Type 2 diabetes mellitus with hyperglycemia Plan: Patient's type 2 diabetes has been suboptimally controlled A1c is 7 2. Continues on metformin a 1000 b.i.d.. He does report some dietary indiscretion. At this time will not add any additional diabetic medication. He will work extensively on diabetic diet. Goal A1c to be below 7.0 (2) Tobacco dependence: Code(s): F17.200 - Nicotine dependence, unspecified, uncomplicated Plan: Unfortunately patient started to smoke again. He does understand he needs to quit as he has cardiovascular risk, has had a previous CVA. Declines my offers start nicotine replacement today. (3) HTN (hypertension): Code(s): I10 - Essential (primary) hypertension Qualifiers: Hypertension type: primary hypertension Qualified Code(s): I10 - Essential (primary) hypertension Plan: Patient's blood pressure acceptable today in office. Will continue his current dose of lisinopril with goal blood pressure be below 140/90 (4) Mild persistent asthma: Code(s): J45.30 - Mild persistent asthma, uncomplicated Qualifiers: Asthma complication type: unspecified Qualified Code(s): J45.30 - Mild persistent asthma, uncomplicated Plan: Patient reports his asthma is fairly well controlled, unfortunately still smoking. He does use Advair disc on a daily basis with good improvement of his pulmonary symptoms. He denies any nighttime awakenings with asthma symptoms or recent asthma exacerbations. (5) Obese: Code(s): E66.9 - Obesity, unspecified Qualifiers: Body mass index: BMI 33.0-33.9 Obesity classification: adult class 1 (BMI 30 - 34.9) Obesity type: due to excess calories Serious obesity comorbidity presence: with serious comorbidity Qualified Code(s): E66.09 - Other obesity due to excess calories; Z68.33 - Body mass index [BMI] 33.0-33.9, adult Plan: Patient does understand his BMI is over 30 and will work on being more physically active an Adapta better eating habits to reduce his weight (6) History of CVA (cerebrovascular accident) without residual deficits: Comment: 04/2017 Code(s): Z86.73 - Personal history of transient ischemic attack (TIA), and cerebral infarction without residual deficits Plan: Will continue to work on reducing risk for recurrent stroke. He unfortunately continues to smoke. Continues on aspirin, blood pressure control with lisinopril, high potency statin. (7) Left knee pain: Code(s): M25.562 - Pain in left knee Qualifiers: Chronicity: chronic Qualified Code(s): M25.562 - Pain in left knee; G89.29 - Other chronic pain Plan: Reports over the last several weeks having anterior left knee pain. He is willing to get x-ray. Advised he may have osteoarthritis and could try NSAID as needed. Orders: Orders Prostate Specific Antigen Scr Today E11.65 - Type 2 diabetes mellitus with hyperglycemia, Z12.5 - Encounter for screening for malignant neoplasm of prostate Lipid Panel Today E78.2 - Mixed hyperlipidemia AMB Hemoglobin A1c Today E11.9 - Type 2 diabetes mellitus without complications Microalbumin, Random (w Creat) Today E11.65 - Type 2 diabetes mellitus with hyperglycemia Comprehensive [place]. Panel Fast Today E11.65 - Type 2 diabetes mellitus with hyperglycemia XR knee LT 3V Today G89.29 - Other chronic pain, M25.562 - Pain in left knee Referrals Ophthalmology Referral E11.65 - Type 2 diabetes mellitus with hyperglycemia Medications: New aspirin 81 mg PO DAILY 90 days 90 tabs 1RF E78.5 - Hyperlipidemia, unspecified, Z86.73 - Personal history of transient ischemic attack (TIA), and cerebral infarction without residual deficits albuterol sulfate 90 mcg/actuation (Ventolin HFA) 1 puff inhalation QID 30 days PRN 8.5 grams 3RF shortness of breath or wheezing J45.30 - Mild persistent asthma, uncomplicated budesonide-formoterol 160-4.5 mcg/actuation (Symbicort) 1 inh inhalation BID 30 days 10.2 grams 3RF J45.30 - Mild persistent asthma, uncomplicated Refilled atorvastatin 80 mg PO BEDTIME 90 days 90 tabs 1RF E78.5 - Hyperlipidemia, unspecified lisinopril 20 mg PO DAILY 90 days 90 tabs 1RF I10 - Essential (primary) hypertension metformin 1,000 mg PO BID 90 days 180 tabs 1RF E11.9 - Type 2 diabetes mellitus without complications On Hold fluticasone propion-salmeterol 250-50 mcg/dose (Advair Diskus) Hold Comment: Doctor's Order 1 inh inhalation BID 60 ea 3RF J45.30 - Mild persistent asthma, uncomplicated Coding Level of Care Code Est Pt Level 4 (92089) Diagnoses Type 2 diabetes mellitus with hyperglycemia, without long-term current use of insulin E11.65 Diabetes mellitus complication status: with hyperglycemia Diabetes mellitus intermediate insulin use: without terminal block assembler use Tobacco dependence F17.200 Primary hypertension I10 Hypertension type: primary hypertension Mild persistent asthma, unspecified whether complicated J45.30 Asthma complication type: unspecified Class 1 obesity due to excess calories with serious comorbidity and body mass index (BMI) of 33.0 to 33.9 in adult E66.09; Z68.33 Body mass index: BMI 33.0-33.9 Obesity classification: adult class 1 (BMI 30 - 34.9) Obesity type: due to excess calories Serious obesity comorbidity presence: with serious comorbidity History of CVA (cerebrovascular accident) without residual deficits Z86.73 Chronic pain of left knee M25.562; G89.29 Chronicity: chronic
== END 2023-11-27 15:44 | disposition home or self-care (01) ==
PROVIDERS: PCP Physician Assistant; Visit Provider Physician Assistant
DX: E11.65 Type 2 diabetes mellitus with hyperglycemia (principal); F17.200 Nicotine dependence, unspecified, uncomplicated; I10 Essential (primary) hypertension; J45.30 Mild persistent asthma, uncomplicated; E66.09 Other obesity due to excess calories; Z68.33 Body mass index [BMI] 33.0-33.9, adult; Z86.73 Personal history of transient ischemic attack (TIA), and cerebral infarction without residual deficits; M25.562 Pain in left knee; G89.29 Other chronic pain; E11.9 Type 2 diabetes mellitus without complications
CPT/HCPCS: 83036; 99214

== ENCOUNTER 2023-11-30 07:10 | Outpatient (REF) | payer OTHER, SELFPAY ==
--- NOTE | ~2023-11-30 | XR_ITS ---
EXAMINATION: XR KNEE, LEFT CLINICAL INFORMATION: Pain in left knee. COMPARISON: None available. TECHNIQUE: Three views of the left knee. FINDINGS: Moderate joint effusion. Vascular calcifications. Mild medial joint space narrowing with tiny medial marginal and posterior patellar osteophytes. Calcification in the posterior soft tissues may be vascular. XR/XR knee LT 3V IMPRESSION: Moderate joint effusion. Mild degenerative changes.
[2023-11-30 10:31] LABS: Alanine Aminotransferase 47 U/L (0-40); Albumin Level 4.2 g/dL (3.5-5.0); Alkaline Phosphatase 48 U/L (39-117); Anion Gap 15 (12-20); Aspartate Amino Transferase 23 U/L (5-37); Bilirubin Total 0.6 mg/dL (0.0-1.0); Blood Urea Nitrogen 11 mg/dL (9-16); Carbon Dioxide 27 mmol/L (22-29); Chloride 103 mmol/L (96-108); Cholesterol 118 mg/dL (<200); Estimated Glomerular Filt Rate > 60; Glucose Fasting 142 mg/dL (60-99); HDL Cholesterol 34 mg/dL (>40); LDL Cholesterol Calculated 30 mg/dL (<100); Potassium 5.5 mmol/L (3.3-5.1); Sodium 139 mmol/L (135-145); Total Protein 7.4 g/dL (6.5-8.0); Triglycerides 271 mg/dL (<150)
[2023-11-30 10:37] LABS: Prostate Specific Antigen Scr 0.25 ng/mL (<0.05-4.0)
[2023-11-30 11:40] LABS: Creatinine Urine 74.25 mg/dL; Microalbum/Creatinine Ratio Ur 6.7 ug/mg cr (<30)
== END 2023-11-30 07:11 | disposition home or self-care (01) ==
LOC: HO.LAB 07:10
PROVIDERS: PCP Physician Assistant; Visit Provider Physician Assistant
DX: Z12.5 Encounter for screening for malignant neoplasm of prostate (principal); E11.65 Type 2 diabetes mellitus with hyperglycemia; G89.29 Other chronic pain; M25.562 Pain in left knee; E78.2 Mixed hyperlipidemia
CPT/HCPCS: 36415; 73562; 80053; 80061; 82043; 82570; 84153

== ENCOUNTER 2024-01-31 09:43 | Outpatient (REF) | payer OTHER, SELFPAY | END 2024-01-31 09:44 | disposition home or self-care (01) | LOC: HO.HOSX 09:43 | PROVIDERS: Visit Provider Physician Assistant | DX: Z13.89 Encounter for screening for other disorder (principal) ==

== ENCOUNTER 2024-04-15 14:21 | Outpatient (AMB) | payer OTHER, SELFPAY ==
[2024-04-15 14:33] VITALS: BP 124/86; PULSE 88; O2SAT 97; BMI 33.8
--- NOTE | 2024-04-15 14:33 | A.OFFPC_ITS ---
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: No Accompanied by: Self / Same As Patient Allergies codeine [CODEINE] Adverse Reaction (Intermediate, Verified 04/15/24 15:08) STOMACH UPSET hydrocodone [From VICODIN] Adverse Reaction (Intermediate, Verified 04/15/24 15:08) STOMACH UPSET Medication List - Last Reconciled 04/15/24 by Quincy Mchugh PA-C albuterol sulfate 90 mcg/actuation (Ventolin HFA) 1 puff inhalation QID PRN 30 d ays aspirin 81 mg PO DAILY 90 days atorvastatin 80 mg PO BEDTIME 90 days blood pressure test kit-large As directed budesonide-formoterol 160-4.5 mcg/actuation (Symbicort) 1 inh inhalation BID 30 days cetirizine 10 mg PO DAILY 90 days fluticasone propion-salmeterol 250-50 mcg/dose (Advair Diskus) 1 inh inhalation BID lisinopril 20 mg PO DAILY 90 days metformin 1,000 mg PO BID 90 days Tobacco use date assessed: 11/27/23 Dental Screening Dental Screen Date: 11/27/23 HPI Annual Exam HPI Details patient is a 58 year-old male here today for a annual physical .? Patient has a past medical history significant for asthma, obesity, hypertension, type 2 diabetes, CVA (2019) .. Concern--> reports his Symbicort inhaler is not helpful, still has wheezing after use the inhaler. Was doing fine with Advair Diskus though apparently had insurance coverage issues. He would like to return back to using Advair .. Tobacco dependency:? Unfortunately patient has started smoking again and reports 5-8 cigarettes per day at work.? He is not interested in nicotine replacement. .. Alcohol use: He does admit to drinking a case Budweiser per week. He admits to 24 beers per week. We did discuss that this may be a little excessive in should cut down drinking. .. Hypertension:? Blood pressure acceptable today in office. He denies any chest discomfort, headaches, vision issues.. Will continue lisinopril 20 mg .. Type 2 diabetes: Patient type 2 diabetes has been suboptimally controlled. Most recent A1c is 7.2. He does admit to dietary indiscretion. PLAN: Will work on diabetic dietary modifications, will continue maximum dose metformin. .. CVA:? Patient did have acute CVA and 2020, has no further neurological deficits.? Will continue to manage risk factors .. Obesity:? Patient does understand his BMI is over 30.? He has been trying to be more physically active to help reduce his weight. Vaccines: UTd with COVID Vaccine ,declines FLu vaccine. , need PCV and shingles -declines Colonoscopy: Patient willing to do Cologuard, declines formal colonoscopy [facility] Medical History Asthma Hyperactive gag reflex History of CVA (cerebrovascular accident) without residual deficits Hydrocele DMII (diabetes mellitus, type 2) Gout HTN (hypertension) HLD (hyperlipidemia) Surgical History History of surgery on wrist History of carpal tunnel surgery of left wrist History of carpal tunnel release Family History Father No problems noted. 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 Dev Sutton, Taylor Biggs, Wilbert Deluna and colleagues, with an educational selam from [employer]. ACT Questionnaire In the past 4 weeks, how much of the time did your asthma keep you from getting as much done at work, school or at home?: None of the time During the past 4 weeks, how often have you had shortness of breath?: Not at all During the past 4 weeks, how often did your asthma symptoms wake you up at night or earlier than usual in the morning?: Not at all During the past 4 weeks, how often have you had to use your rescue inhaler or nebulizer medication?: Once a week or less How would you rate your asthma control during the past 4 weeks?: Completely controlled ACT Interpretation: Negative Score: 24 Review of Systems Const Denies body aches, Denies chills, Denies excessive sweating, Denies fatigue, Denies fever(s) and Denies headache(s) Eyes Denies blurry vision ENT Denies dysphagia, Denies vertigo, Denies dizziness, Denies headache(s), Denies hearing loss and Denies tinnitus Card Denies chest pain, Denies chest pain with activity, Denies syncope, Denies irregular heart rhythm and Denies dyspnea Resp Denies chest congestion, Denies cough, Denies hemoptysis, Denies dyspnea and Denies wheezing GI Denies abdominal pain, Denies melena, Denies hematochezia, Denies coffee ground emesis, Denies dysphagia, Denies diarrhea, Denies nausea and Denies vomiting Denies difficulty urinating, Denies dysuria, Denies urinary frequency, Denies urinary hesitancy and Denies urinary urgency Musc Denies arthralgias, Denies limited range of motion, Denies muscle cramps and Denies muscle weakness Skin/Breast Denies rash and Denies skin ulcer Neuro Denies Abnormal speech present, Denies confusion, Denies vertigo, Denies dizziness, Denies syncope, Denies headache(s), Denies memory loss and Denies seizure-like activity Psych Denies anxiety, Denies confusion, Denies depression, Denies memory loss, Denies panic attacks and Denies paranoia Endo Denies excessive sweating, Denies fatigue, Denies flushing, Denies polydipsia and Denies polyuria Aller/Immun Denies wheezing Physical exam (Primary Care) Vital Signs: Last Vital Signs Pulse 88 04/15/24 14:33 BP 124/86 04/15/24 14:33 Pulse Ox 97 04/15/24 14:33 Oxygen Delivery Method Room Air 04/15/24 14:33 BMI result Body Mass Index 33.8 Tobacco/Smoking Status: Tobacco use Status Tobacco use date assessed 11/27/23 04/15/24 14:34 Patient Tobacco Use Status Current everyday Tobacco 04/15/24 15:13 Tobacco use type Cigarette 04/15/24 15:13 e-Cigarette/Vaping Use Never Used 04/15/24 15:13 Are you ready to quit: No Tobacco cessation counseling provided: Yes Items discussed: Nicotine replacement Relapse Prevention: discussed the importance of a supportive environment, discussed negative mood or depression after quitting, weight gain after smoking is common and discussed dietary, exercise and/or lifestyle changes Number of minutes spent counselin CPT code: 97186 - 4-10 Minutes Thrive Assessment: Date of Thrive Assessment Date Thrive assessed 11/27/23 04/15/24 14:34 Const General: cooperative, comfortable, no acute distress, alert and awake; No confusion Orientation/consciousness: oriented to person, oriented to place, patient oriented x3 and No confusion HENMT Head: Yes normocephalic Ears: external ears normal and TM's normal bilaterally Face and sinus: No sinus tenderness Mouth: Normal oral and palatal mucosa present and tongue normal Teeth and gingiva: dentition normal and gingiva normal Throat: Yes posterior oropharynx normal, Yes tonsils normal and Yes uvula midline Eyes Conjunctivae: conjunctivae normal Sclerae: sclerae normal Pupils: Equal, round and reactive pupils present EOM: EOMs intact bilaterally Direct Ophthalmoscopy: No no photophobia Neck Neck: Yes no lymphadenopathy, No tender and Yes no JVD Thyroid: Thyroid normal Carotids: no bruits Chest Chest palpation & inspection: no tenderness Resp Effort & Inspection: normal respiratory effort, no audible wheezes, not labored and no stridor Auscultation: no crackles, no rales, no rhonchi and no wheezes Cardio Jugular venous distension: no JVD Rate: regular rate, not bradycardic and not tachycardic Rhythm: regular rhythm Bruits: no carotid bruits Peripheral pulses: Peripheral pulses 2+ throughout GI Inspection: Yes normal to inspection, No abdominal wall ecchymosis and No visible herniation Palpation (GI): Soft to palpation, nontender, no guarding, not rigid and No hepatosplenomegaly present Auscultation: normoactive bowel sounds General: Yes no CVA tenderness Back/Spine/Pelvis Back: no CVA tenderness and No back tenderness Cervical Spine: cervical ROM normal Thoracic/Lumbar Spine: thoracic and lumbar spine normal to inspection, straight leg raise negative bilaterally, No thoraco-lumbar ROM limited and No lumbar spinal tenderness Skin Lesions: no lesions Rashes: no rashes Wounds: no wounds Neuro General: oriented to person, oriented to place, patient oriented x3, CN's II-XI intact bilaterally and No confusion Cranial nerves: Yes Equal, round and reactive pupils present and Yes Normal accommodation reflex present Cognition (Neuro): normal cognition Speech: No Abnormal speech present Gait exam (Neuro): Normal gait present Motor exam (neuro): 5/5 motor strength present throughout Extrem Right upper extremity: full ROM; no cyanosis Left upper extremity: full ROM; no cyanosis Right lower extremity: no edema Left lower extremity: no edema Psych Appearance: grossly normal Mental Status: mental status grossly normal Affect: normal affect Attitude: cooperative Thought process: Normal thought process present Assessment and Plan Assessment & Plan (1) DMII (diabetes mellitus, type 2): Code(s): E11.9 - Type 2 diabetes mellitus without complications Qualifiers: Diabetes mellitus complication status: with hyperglycemia Diabetes mellitus halfway insulin use: without halfway use Qualified Code(s): E11.65 - Type 2 diabetes mellitus with hyperglycemia Plan: Patient's type 2 diabetes has been suboptimally controlled A1c is 7 2. Continues on metformin a 1000 b.i.d.. He does report some dietary indiscretion. At this time will not add any additional diabetic medication. He will work extensively on diabetic diet. Goal A1c to be below 7.0 (2) Tobacco dependence: Code(s): F17.200 - Nicotine dependence, unspecified, uncomplicated Plan: Unfortunately still smoking. He does understand he needs to quit as he has cardiovascular risk, has had a previous CVA. Declines my offers start nicotine replacement today. (3) HTN (hypertension): Code(s): I10 - Essential (primary) hypertension Qualifiers: Hypertension type: primary hypertension Qualified Code(s): I10 - Essential (primary) hypertension Plan: Patient's blood pressure acceptable today in office. Will continue his current dose of lisinopril with goal blood pressure be below 140/90 (4) Mild persistent asthma: Code(s): J45.30 - Mild persistent asthma, uncomplicated Qualifiers: Asthma complication type: unspecified Qualified Code(s): J45.30 - Mild persistent asthma, uncomplicated Plan: Patient reports his asthma is fairly well controlled, unfortunately still smokin g. He reports Advair Diskus was more effective for controlling his asthma symptoms. Due to insurance reasons he switched to Symbicort that has not been as effective. Will return back to Advair HFA. He denies any nighttime awakenings with asthma symptoms or recent asthma exacerbations. (5) Obese: Code(s): E66.9 - Obesity, unspecified Qualifiers: Body mass index: BMI 33.0-33.9 Obesity classification: adult class 1 (BMI 30 - 34.9) Obesity type: due to excess calories Serious obesity comorbidity presence: with serious comorbidity Qualified Code(s): E66.09 - Other obesity due to excess calories; Z68.33 - Body mass index [BMI] 33.0-33.9, adult Plan: Patient does understand his BMI is over 30 and will work on being more physically active an Adapta better eating habits to reduce his weight (6) History of CVA (cerebrovascular accident) without residual deficits: Comment: 04/2017 Code(s): Z86.73 - Personal history of transient ischemic attack (TIA), and cerebral infarction without residual deficits Plan: Will continue to work on reducing risk for recurrent stroke. He unfortunately continues to smoke. Continues on aspirin, blood pressure control with lisinopril, high potency statin. Orders: Orders Hemoglobin A1c Today E11.65 - Type 2 diabetes mellitus with hyperglycemia Complete Blood Count no Diff Today E11.65 - Type 2 diabetes mellitus with hyperglycemia Lipid Panel Today Z86.73 - Personal history of transient ischemic attack (TIA), and cerebral infarction without residual deficits Comprehensive [place]. Panel Fast Today E11.65 - Type 2 diabetes mellitus with hyperglycemia Medications: New fluticasone propion-salmeterol 115-21 mcg/actuation (Advair HFA) 2 puffs inhalation BID 12 grams 3RF 30 days J45.30 - Mild persistent asthma, uncomplicated Discontinued budesonide-formoterol 160-4.5 mcg/actuation (Symbicort) Discontinued Reason: Doctor's Order 1 inh inhalation BID 30 days 10.2 grams 3RF J45.30 - Mild persistent asthma, uncomplicated Patient Instructions: Goal: Blood pressure to remain below 140/90, LDL to remain below 100 Barriers: Adherence to physical activity and healthy eating habits Coding Level of Care Code Est Pt Prev Care 40-64y([id number]) Diagnoses Type 2 diabetes mellitus with hyperglycemia, without long-term current use of insulin E11.65 Diabetes mellitus complication status: with hyperglycemia Diabetes mellitus halfway insulin use: without press tender long goods use Tobacco dependence F17.200 Primary hypertension I10 Hypertension type: primary hypertension Mild persistent asthma, unspecified whether complicated J45.30 Asthma complication type: unspecified Class 1 obesity due to excess calories with serious comorbidity and body mass index (BMI) of 33.0 to 33.9 in adult E66.09; Z68.33 Body mass index: BMI 33.0-33.9 Obesity classification: adult class 1 (BMI 30 - 34.9) Obesity type: due to excess calories Serious obesity comorbidity presence: with serious comorbidity History of CVA (cerebrovascular accident) without residual deficits Z86.73 Additional Codes Vital Signs *Quality* - CPT code: 92359 - 4-10 Minutes ([id number])
== END 2024-04-15 15:31 | disposition home or self-care (01) ==
PROVIDERS: PCP Physician Assistant; Visit Provider Physician Assistant
DX: Z00.00 Encounter for general adult medical examination without abnormal findings (principal); E11.65 Type 2 diabetes mellitus with hyperglycemia; I10 Essential (primary) hypertension; J45.30 Mild persistent asthma, uncomplicated; F17.200 Nicotine dependence, unspecified, uncomplicated; E66.09 Other obesity due to excess calories; Z68.33 Body mass index [BMI] 33.0-33.9, adult; Z86.73 Personal history of transient ischemic attack (TIA), and cerebral infarction without residual deficits
CPT/HCPCS: 99396

== ENCOUNTER 2024-12-22 14:47 | Outpatient (REF) | payer OTHER, SELFPAY ==
[2024-12-22 18:57] LABS: Influenza A PCR NEGATIVE (Negative); Influenza B PCR NEGATIVE (Negative); Resp Syncy Virus RNA Qual PCR NEGATIVE (Negative); SARS COV2 PCR INHOUSE NEGATIVE (Negative)
== END 2024-12-22 14:48 | disposition home or self-care (01) ==
LOC: HO.LAB 14:47
PROVIDERS: PCP Physician Assistant
DX: J06.9 Acute upper respiratory infection, unspecified (principal); J40 Bronchitis, not specified as acute or chronic; I10 Essential (primary) hypertension; R09.89 Other specified symptoms and signs involving the circulatory and respiratory systems
CPT/HCPCS: 0241U; 96127; 99212

== ENCOUNTER 2024-12-22 14:47 | Outpatient (AMB) | payer SELFPAY ==
--- NOTE | 2024-12-22 14:59 | MHC.PC.OV ---
Vital Signs 12/22/24 15:00 12/22/24 15:21 Height 6 ft 2 in Weight 254 lb 4 oz BMI 32.6 BP 179/98 H 150/90 H Blood Pressure Location Lt brachial Position Sitting Pulse 70 Pulse Source Pulse Oximeter Temp 97.0 F Temp Source Oral Pulse Oximetry (%) 100 Oxygen Delivery Method Room Air Intake Visit Reasons: ? 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 Accompanied by: Self / Same As Patient Allergies codeine [CODEINE] Adverse Reaction (Intermediate, Verified 12/22/24 15:11) STOMACH UPSET hydrocodone [From VICODIN] Adverse Reaction (Intermediate, Verified 12/22/24 15:11) STOMACH UPSET Medication List - Last Reconciled 12/22/24 by Quincy Mchugh PA-C albuterol sulfate 90 mcg/actuation (Ventolin HFA) 1 puff inhalation QID PRN 30 days aspirin 81 mg PO DAILY 90 days atorvastatin 80 mg PO BEDTIME 90 days blood pressure test kit-large As directed cetirizine 10 mg PO DAILY 90 days fluticasone propion-salmeterol 115-21 mcg/actuation (Advair HFA) 2 puffs inhalation BID 30 days fluticasone propion-salmeterol 250-50 mcg/dose (Advair Diskus) 1 inh inhalation BID lisinopril 20 mg PO DAILY 90 days metformin 1,000 mg PO BID 90 days Tobacco use date assessed: 12/22/24 Dental Screening Dental Screen Date: 12/22/24 Did you have a dental visit in the last 12 months?: Yes Did you have a dental problem in the last 6 months where you did not have access to dental care?: No Was dental information given to patient?: Patient has dentist HPI ? flu, fever, congestion HPI Details Patient is a 59 male here today for an urgent sick visit. Has been having fever and congestion over the last week. He reports he has been out of work due to being ill. Does report having a mild wheeze. He does have access to an albuterol inhaler. Noted blood pressure to be elevated today in office. Has been eating a lot high sodium soups due to his illness. Due to not having insurance he has not been taking any medication. Recently reestablished with an insurance company and has restarted lisinopril. PENDING SALE TO [facility] Medical History Asthma Hyperactive gag reflex History of CVA (cerebrovascular accident) without residual deficits Hydrocele DMII (diabetes mellitus, type 2) Gout HTN (hypertension) HLD (hyperlipidemia) Surgical History History of surgery on wrist History of carpal tunnel surgery of left wrist History of carpal tunnel release Family History Father No problems noted. 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 1. Little interest or pleasure in doing things: not at all 2. Feeling down, depressed, or hopeless: not at all 3. Trouble falling or staying asleep, or sleeping too much: not at all 4. Feeling tired or having little energy: not at all 5. Poor appetite or overeating: not at all 6. Feeling bad about yourself - or that you are a failure or have let yourself or your family down: not at all 7. Trouble concentrating on things, such as reading the newspaper or watching television: not at all 8. Moving or speaking so slowly that other people could have noticed. Or the opposite - being so fidgety or restless that you have been moving around a lot more than usual: not at all 9. Thoughts that you would be better off or of hurting yourself in some way: not at all Total score: 0 Depression Screening Interpretation: Negative Depression Screening Done: Yes [id number] - PHQ-9 Billing: Yes Source: Developed by Drs. Dev Sutton, Taylor Biggs, Wilbert Deluna and colleagues, with an educational selam from [employer]. Thrive Questionnaire Date Thrive assessed: 12/22/24 I am a: Patient What is your living situation today?: I have a steady place to live Within the past 12 months, did the food you bought not last and you didn't have the money to get more?: Never true Within the past 12 months, did you worry whether your food would run out before you got money to buy more?: Never true Do you have trouble paying for medicines?: No Do you have trouble getting transportation to medical appointments?: No Do you have trouble paying your heating and electricity bill?: No Do you have trouble taking care of your child, family member or friend?: No Do you have trouble with day-to-day activities such as bathing, preparing meals, shopping, managing finances, etc.?: No Are you currently unemployed and looking for a job?: No Are you interested in more education?: No Please select the resources that you would like help with: None Currently or been in a relationship where the following occur: No concerns reported THRIVE Score: 0 AUDIT C Alcohol Use Questionnaire (AUDIT-C) 1. How often do you have a drink containing alcohol?: 2-3 times a week 2. How many drinks containing alcohol do you have on a typical day when you are drinking?: 3 or 4 3. How often do you have six or more drinks on one occasion?: Weekly Total Score: 7 RADHA-7 AMB Questionnaire RADHA-7 Date RADHA - 7 assessed: 12/22/24 Feeling nervous, anxious, or on edge: 0 = Not at all Not being able to stop or control worryin = Not at all Worrying too much about different things: 0 = Not at all Trouble relaxin = Not at all Being so restless that it is hard to sit still: 0 = Not at all Becoming easily annoyed or irritable: 0 = Not at all Feeling afraid as if something awful might happen: 0 = Not at all Total RADHA-7 score (0-4 normal; 5-9 mild; 10-14 moderate; 15-21 severe): 0 Source: Developed by Drs. Dev Sutton, Taylor Biggs, Wilbert Deluna and colleagues, with an educational selam from [employer]. RADHA-7 Assessment Billing RADHA-7 Assessment Tool: RADHA-7 Assessment 04397 Review of Systems Const Reports fatigue and Reports headache(s) Eyes Denies loss of vision ENT Denies vertigo, Denies dizziness, Reports headache(s) and Denies sore throat Card Denies chest pain, Denies leg edema and Denies lightheadedness Resp Denies cough, Denies hemoptysis and Reports wheezing GI Denies abdominal pain, Denies melena, Denies constipation, Denies diarrhea and Denies vomiting Denies dysuria, Denies urinary frequency and Denies urinary urgency Musc Denies arthralgias, Denies joint swelling, Denies numbness and Denies tingling Neuro Denies Abnormal speech present, Denies behavioral changes, Denies vertigo, Denies dizziness, Reports headache(s), Denies loss of vision, Denies memory loss, Denies numbness and Denies tingling Psych Denies anxiety, Denies behavioral changes, Denies depression, Denies memory loss and Denies panic attacks Endo Reports fatigue Tai/Lymph Denies easy bleeding and Denies easy bruising Aller/Immun Reports wheezing Physical exam (Primary Care) Vital Signs: Last Vital Signs Temp 97.0 F 12/22/24 15:00 Pulse 70 12/22/24 15:00 BP 179/98 H 12/22/24 15:00 Pulse Ox 100 12/22/24 15:00 Oxygen Delivery Method Room Air 12/22/24 15:00 BMI result Body Mass Index 32.6 Tobacco/Smoking Status: Tobacco use Status Tobacco use date assessed 12/22/24 12/22/24 15:02 Patient Tobacco Use Status Current everyday Tobacco 12/22/24 15:02 Tobacco use type Cigarette 12/22/24 15:02 e-Cigarette/Vaping Use Never Used 12/22/24 15:02 PHQ-9: PHQ-9 Score PHQ-9: Total score 0 12/22/24 15:02 Depression Screening Interpretation: Negative Thrive Assessment: Date of Thrive Assessment Date Thrive assessed 12/22/24 12/22/24 15:02 Currently or been in a relationship where the following occur: No concerns reported Const General: healthy appearing, no acute distress, alert and awake Nutritional Appearance: well nourished Orientation/consciousness: oriented to person, oriented to place and oriented to time HENMT Ears: TM's normal bilaterally General nose exam: Normal nasal mucous membranes and turbinates present Eyes Conjunctivae: conjunctivae normal Sclerae: sclerae normal Pupils: Equal, round and reactive pupils present Neck Neck: Yes no lymphadenopathy and Yes no JVD Thyroid: Thyroid normal Carotids: no bruits Resp Effort & Inspection: normal respiratory effort and not tachypneic Auscultation: no crackles, no rales, no rhonchi and no wheezes Cardio Rate: regular rate Rhythm: regular rhythm Heart sounds: no murmurs and normal S1 and S2 GI Palpation (GI): Soft to palpation, nontender, no hepatomegaly and no splenomegaly Auscultation: normal bowel sounds Skin General skin exam: no rashes or lesions noted and dry skin Neuro General: oriented to person, oriented to place and oriented to time Cranial nerves: Yes Equal, round and reactive pupils present Speech: No Abnormal speech present Gait exam (Neuro): Normal gait present Motor exam (neuro): no tremor noted Extrem Right upper extremity: full ROM Left upper extremity: full ROM Right lower extremity: full ROM; no edema Left lower extremity: full ROM; no edema Psych Mental Status: mental status grossly normal Speech and movement: Normal speech and movement present Affect: normal affect Attitude: cooperative Thought process: Normal thought process present Coding Level of Care Code Est Pt Level 4 (87012) Diagnoses Viral upper respiratory tract infection J06.9 URI type: unspecified viral URI Bronchitis J40 Primary hypertension I10 Hypertension type: primary hypertension Additional Codes RADHA-7 Assessment Billing - RADHA-7 Assessment Tool: RADHA-7 Assessment 59112 ([id number]) PHQ-9 - 66138 - PHQ-9 Billing: Yes ([id number]) Assessment & Plan Assessment & Plan (1) URI (upper respiratory infection): Code(s): J06.9 - Acute upper respiratory infection, unspecified Category: Medical Qualifiers: URI type: unspecified viral URI Qualified Code(s): J06.9 - Acute upper respiratory infection, unspecified Plan: As per HPI patient's seems to have upper respiratory viral illness. Will check for flu RSV and COVID. Will call patient pack. At this point he has had a week of symptoms that have gradually been getting better. (2) Bronchitis: Code(s): J40 - Bronchitis, not specified as acute or chronic Category: Medical Plan: As above (3) HTN (hypertension): Code(s): I10 - Essential (primary) hypertension Category: Medical Qualifiers: Hypertension type: primary hypertension Qualified Code(s): I10 - Essential (primary) hypertension Plan: Patient's blood pressure elevated today in office. Has been eating a lot of high sodium soups due to his illness. Has not been taking lisinopril as he has lost his insurance. Recently regained insurance He has recently restarted lisinopril. Advised on monitoring his blood pressure at home with goal blood pressure to be below 140/90. Orders: Orders SARS-CoV2/FLU/RSV Today R09.89 - Other specified symptoms and signs involving the circulatory and respiratory systems Medications: Changed From albuterol sulfate 90 mcg/actuation (Ventolin HFA) 1 puff inhalation QID 30 days PRN 8.5 grams 3RF shortness of breath or wheezing J45.30 - Mild persistent asthma, uncomplicated To albuterol sulfate 90 mcg/actuation 1 puff inhalation QID 30 days 8.5 grams 6RF shortness of breath or wheezing J45.30 - Mild persistent asthma, uncomplicated Refilled blood pressure test kit-large As directed 1 ea 0RF I10 - Essential (primary) hypertension
[2024-12-22 15:00] VITALS: BP 179/98; PULSE 70; TEMP 36.1; O2SAT 100; BMI 32.6
[2024-12-22 15:21] VITALS: BP 150/90
== END 2024-12-22 15:26 | disposition home or self-care (01) ==
PROVIDERS: PCP Physician Assistant; Visit Provider Physician Assistant
DX: J06.9 Acute upper respiratory infection, unspecified (principal); J40 Bronchitis, not specified as acute or chronic; I10 Essential (primary) hypertension

== ENCOUNTER 2025-09-01 10:51 | Outpatient (REF) | payer OTHER, SELFPAY ==
--- NOTE | ~2025-09-01 | XR_ITS ---
EXAMINATION: XR CHEST 2 VIEWS HISTORY: R05.9 - Cough, unspecified COMPARISON: Comparison is made with the prior examination dated 04/05/2018. FINDINGS: PA and lateral views of the chest are submitted. The lungs are expanded and clear. Incidental note is made of an azygos lobe. There is no pleural effusion, pneumothorax, or pulmonary vascular congestion. The heart is normal in size. There is mild degenerative disc disease of the spine. XR/XR chest 2V IMPRESSION: No acute cardiopulmonary abnormality. Electronically signed by: Dev Funk MD 09/01/2025 12:09 PM EDT
== END 2025-09-01 10:52 | disposition home or self-care (01) ==
LOC: HO.XRAY 10:51
PROVIDERS: PCP Physician Assistant; Visit Provider Internal Medicine
DX: R05.3 Chronic cough (principal); R53.83 Other fatigue; Z79.899 Other long term (current) drug therapy
CPT/HCPCS: 71046

== ENCOUNTER 2025-09-01 10:51 | Outpatient (AMB) | payer OTHER, SELFPAY ==
[2025-09-01 11:04] VITALS: BP 140/88; PULSE 83; TEMP 35.9; O2SAT 96; BMI 30.8
--- NOTE | 2025-09-01 11:04 | A.OFFPC_ITS ---
Vital Signs 09/01/25 11:04 Height 6 ft 2 in Weight 240 lb BMI 30.8 BP 140/88 H Blood Pressure Location Lt brachial Position Sitting Pulse 83 Pulse Source Pulse Oximeter Temp 96.6 F L Temp Source Temporal Artery Scan Pulse Oximetry (%) 96 Oxygen Delivery Method Room Air Intake Visit Reasons: sick for 3 weeks Intake Note: Patient complains of Shortness of breath, Coughing with phelms, running nose, congestion, wheezing headaches, no fever or chills on going for three weeks. OTC and antibiotic no relief. 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 Accompanied by: Self / Same As Patient Allergies codeine (CODEINE) Adverse Reaction (Intermediate, Verified 09/01/25 11:04) STOMACH UPSET hydrocodone (From VICODIN) Adverse Reaction (Intermediate, Verified 09/01/25 11:04) STOMACH UPSET Tobacco use date assessed: 09/01/25 Dental Screening Dental Screen Date: 12/22/24 [facility] Medical History Asthma Hyperactive gag reflex History of CVA (cerebrovascular accident) without residual deficits Hydrocele DMII (diabetes mellitus, type 2) Gout HTN (hypertension) HLD (hyperlipidemia) Surgical History History of surgery on wrist History of carpal tunnel surgery of left wrist History of carpal tunnel release Family History Father No problems noted. 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 1. Little interest or pleasure in doing things: more than half the days 2. Feeling down, depressed, or hopeless: not at all 3. Trouble falling or staying asleep, or sleeping too much: not at all 4. Feeling tired or having little energy: more than half the days 5. Poor appetite or overeating: more than half the days 6. Feeling bad about yourself - or that you are a failure or have let yourself or your family down: not at all 7. Trouble concentrating on things, such as reading the newspaper or watching television: not at all 8. Moving or speaking so slowly that other people could have noticed. Or the opposite - being so fidgety or restless that you have been moving around a lot more than usual: not at all 9. Thoughts that you would be better off or of hurting yourself in some way: not at all Total score: 6 Depression Screening Interpretation: Positive Depression Screening Done: Yes Source: Developed by Drs. Dev Sutton, Taylor Biggs, Wilbert Deluna and colleagues, with an educational selam from [employer]. Thrive Questionnaire Date Thrive assessed: 12/22/24 I am a: Patient What is your living situation today?: I have a steady place to live Within the past 12 months, did the food you bought not last and you didn't have the money to get more?: Never true Within the past 12 months, did you worry whether your food would run out before you got money to buy more?: Never true Do you have trouble paying for medicines?: No Do you have trouble getting transportation to medical appointments?: No Do you have trouble paying your heating and electricity bill?: No Do you have trouble taking care of your child, family member or friend?: No Do you have trouble with day-to-day activities such as bathing, preparing meals, shopping, managing finances, etc.?: No Are you currently unemployed and looking for a job?: Yes Are you interested in more education?: No Please select the resources that you would like help with: None Currently or been in a relationship where the following occur: No concerns reported THRIVE Score: 0 AUDIT C Alcohol Use Questionnaire (AUDIT-C) 1. How often do you have a drink containing alcohol?: Never Total Score: 0 RADHA-7 AMB Questionnaire RADHA-7 Date RADHA - 7 assessed: 12/22/24 Feeling nervous, anxious, or on edge: 0 = Not at all Not being able to stop or control worryin = Not at all Worrying too much about different things: 0 = Not at all Trouble relaxin = Not at all Being so restless that it is hard to sit still: 0 = Not at all Becoming easily annoyed or irritable: 0 = Not at all Feeling afraid as if something awful might happen: 0 = Not at all Total RADHA-7 score (0-4 normal; 5-9 mild; 10-14 moderate; 15-21 severe): 0 Source: Developed by Drs. Dev Sutton, Taylor Biggs, Wilbert Deluna and colleagues, with an educational selam from [employer]. Physical exam (Primary Care) Vital Signs: Last Vital Signs Temp 96.6 F L 09/01/25 11:04 Pulse 83 09/01/25 11:04 BP 140/88 H 09/01/25 11:04 Pulse Ox 96 09/01/25 11:04 Oxygen Delivery Method Room Air 09/01/25 11:04 BMI result Body Mass Index 30.8 Tobacco/Smoking Status: Tobacco use Status Tobacco use date assessed 09/01/25 09/01/25 11:13 Patient Tobacco Use Status Former Tobacco user 09/01/25 11:13 Tobacco use type Cigarette 09/01/25 11:13 e-Cigarette/Vaping Use Never Used 09/01/25 11:13 PHQ-9: PHQ-9 Score PHQ-9: Total score 6 09/01/25 11:13 Depression Screening Interpretation: Positive Thrive Assessment: Date of Thrive Assessment Date Thrive assessed 12/22/24 09/01/25 11:13 Currently or been in a relationship where the following occur: No concerns reported Coding Level of Care Code Est Pt Level 4 (53915) Complex EM visit Add On G2211 Diagnoses Cough R05.9 Assessment & Plan Assessment & Plan (1) Cough: Code(s): R05.9 - Cough, unspecified Plan: History of Present Illness - The patient is a 59-year-old male presenting with persistent cough, wheezing, and shortness of breath. - The patient reports a persistent cough, wheezing, and dyspnea lasting for three weeks. - He visited urgent care three weeks ago and was diagnosed with bronchitis. - A chest x-ray was performed, and he was prescribed prednisone and albuterol, which have not alleviated his symptoms. - The patient has been using albuterol frequently, approximately 15 times a day, due to severe symptoms. 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 - The patient has a history of using albuterol once daily in the past for high blood pressure management. - He has taken antibiotics provided by his [id number], but they were ineffective. 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 Review of Systems - Respiratory: Reports persistent cough, wheezing, and dyspnea for three weeks. Denies chest pain. Physical Exam General: Cooperative and healthy appearing Nutritional Appearance: Well nourished Orientation/consciousness: Patient oriented x3 Limitations: No limitations Head: Normal to inspection General: Appearance normal, both eyes and all related structures Neck: Normal visual inspection Chest: Normal palpation of entire chest wall Respiratory: Wheezy lungs, shortness of breath, constant coughing ormal respiratory effort Neurology: Patient oriented x3 Results - Imaging: Chest x-ray performed at urgent care, results not specified. Plan - Prescribe Zithromax (azithromycin) with a loading dose of two pills today, followed by one pill daily. - Continue prednisone with a specific dosing schedule: three pills today and tomorrow, then three on Saturday. - Provide a new inhaler to be used twice daily. - Schedule a follow-up appointment on Saturday to assess progress. - Advise the patient to refrain from working until the follow-up appointment to prevent exacerbation of symptoms. - Repeat chest x-ray to rule out pneumonia. Discussion Notes I discussed with the patient that his symptoms are consistent with bronchitis and that his lungs sound wheezy. I recommended starting Zithromax and continuing prednisone with a specific dosing schedule. I advised using a new inhaler twice daily and scheduled a follow-up appointment on Saturday. I emphasized the importance of not working until the follow-up to prevent symptom exacerbation. Additionally, I recommended a repeat chest x-ray to rule out pneumonia. Patient Instructions - Take Zithromax as prescribed: two pills today, then one pill daily. - Follow the prednisone dosing schedule: three pills today and tomorrow, then three on Saturday. - Use the new inhaler twice daily. - Attend the follow-up appointment on Saturday. - Do not work until after the follow-up appointment. - Get a repeat chest x-ray as instructed. Orders: Orders XR chest 2V 09/01/25 R05.9 - Cough, unspecified Medications: New azithromycin take 500 mg today (day 1), then 250 mg for 4 days (days 2-5) PO 6 tabs 0RF budesonide-formoterol 80-4.5 mcg/actuation (Symbicort) 1 inh inhalation BID 10.2 grams 1RF prednisone 60 mg (3 x 20 mg) PO DAILY 9 tabs 0RF
--- OUTSIDE RECORDS SUMMARY | 2025-09-01 13:41 | XMS_ITS ---
Author Name [facility] Organization Unknown History of Medication Use Medication Directions Dispensed Refills Start Date End Date Stat albuterol sulfate 08/14/2025 act aiden benzonatate 08/14/2025 active promethazine-DM 08/14/2025 activ e prednisone 08/14/2025 active atorvastatin calcium 08/06/2025 active metformin HCl 03/29/2025 active lisinopril 01/05/2025 active albuterol sulfate 12/22/2024 act aiden Encounters Encounter Type Encounter Reason Primary Diagnosis Location Date Ambulatory [facility] Acute bronchitis , unspecified [facility] 08/14/2025 Care Team Organization Name Specialty Phone Email Start Date End [facility] 08/18/2025 [facility] 08/14/2025
== END 2025-09-01 11:29 | disposition home or self-care (01) ==
LOC: HO.HMCH 10:52
PROVIDERS: PCP Physician Assistant; Visit Provider Internal Medicine
DX: R05.9 Cough, unspecified (principal)

== ENCOUNTER → 2025-09-01 11:42 | Outpatient (BNV) | payer OTHER, SELFPAY | PROVIDERS: PCP Physician Assistant; Visit Provider Radiology Diagnostic Radiology | DX: R05.9 Cough, unspecified (principal) | CPT/HCPCS: 71046 ==

== ENCOUNTER → 2025-09-06 08:45 | Outpatient (BNVA) | payer OTHER, SELFPAY | PROVIDERS: PCP Physician Assistant; Visit Provider Internal Medicine | DX: J06.9 Acute upper respiratory infection, unspecified (principal); Z28.21 Immunization not carried out because of patient refusal | CPT/HCPCS: 90471; 96127 ==

== ENCOUNTER → 2025-09-06 08:45 | Outpatient (AMB) | payer OTHER, SELFPAY ==
[2025-09-06 09:12] VITALS: BP 137/79; PULSE 66; RESP 16; TEMP 36.4; O2SAT 99; BMI 30.8
--- NOTE | 2025-09-06 09:12 | A.OFFPC_ITS ---
Vital Signs 09/06/25 09:12 Height 6 ft 2 in Weight 240 lb BMI 30.8 BP 137/79 Blood Pressure Location Lt brachial Position Sitting Respiration 16 Pulse 66 Pulse Source Pulse Oximeter Temp 97.6 F Temp Source Temporal Artery Scan Pulse Oximetry (%) 99 Oxygen Delivery Method Room Air Intake Visit Reasons: Follow up Recyclable [employer] Sorter Required: No Allergies codeine (CODEINE) Adverse Reaction (Intermediate, Verified 09/06/25 09:13) STOMACH UPSET hydrocodone (From VICODIN) Adverse Reaction (Intermediate, Verified 09/06/25 09:13) STOMACH UPSET Tobacco use date assessed: 09/01/25 Dental Screening Dental Screen Date: 12/22/24 [facility] Medical History Asthma Hyperactive gag reflex History of CVA (cerebrovascular accident) without residual deficits Hydrocele DMII (diabetes mellitus, type 2) Gout HTN (hypertension) HLD (hyperlipidemia) Surgical History History of surgery on wrist History of carpal tunnel surgery of left wrist History of carpal tunnel release Family History Father No problems noted. 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 1. Little interest or pleasure in doing things: more than half the days 2. Feeling down, depressed, or hopeless: not at all 3. Trouble falling or staying asleep, or sleeping too much: not at all 4. Feeling tired or having little energy: more than half the days 5. Poor appetite or overeating: more than half the days 6. Feeling bad about yourself - or that you are a failure or have let yourself or your family down: not at all 7. Trouble concentrating on things, such as reading the newspaper or watching television: not at all 8. Moving or speaking so slowly that other people could have noticed. Or the opposite - being so fidgety or restless that you have been moving around a lot more than usual: not at all 9. Thoughts that you would be better off or of hurting yourself in some way: not at all Total score: 6 Depression Screening Interpretation: Positive Depression Screening Done: Yes Source: Developed by Drs. Dev Sutton, Taylor Biggs, Wilbert Deluna and colleagues, with an educational selam from [employer]. Thrive Questionnaire Date Thrive assessed: 12/22/24 I am a: Patient What is your living situation today?: I have a steady place to live Within the past 12 months, did the food you bought not last and you didn't have the money to get more?: Never true Within the past 12 months, did you worry whether your food would run out before you got money to buy more?: Never true Do you have trouble paying for medicines?: No Do you have trouble getting transportation to medical appointments?: No Do you have trouble paying your heating and electricity bill?: No Do you have trouble taking care of your child, family member or friend?: No Do you have trouble with day-to-day activities such as bathing, preparing meals, shopping, managing finances, etc.?: No Are you currently unemployed and looking for a job?: Yes Are you interested in more education?: No Please select the resources that you would like help with: None Currently or been in a relationship where the following occur: No concerns reported THRIVE Score: 0 AUDIT C Alcohol Use Questionnaire (AUDIT-C) 1. How often do you have a drink containing alcohol?: Never 3. How often do you have six or more drinks on one occasion?: Never Total Score: 0 RADHA-7 AMB Questionnaire RADHA-7 Date RADHA - 7 assessed: 12/22/24 Feeling nervous, anxious, or on edge: 0 = Not at all Not being able to stop or control worryin = Not at all Worrying too much about different things: 0 = Not at all Trouble relaxin = Not at all Being so restless that it is hard to sit still: 0 = Not at all Becoming easily annoyed or irritable: 0 = Not at all Feeling afraid as if something awful might happen: 0 = Not at all Total RADHA-7 score (0-4 normal; 5-9 mild; 10-14 moderate; 15-21 severe): 0 Source: Developed by Drs. Dev Sutton, Taylor Biggs, Wilbert Deluna and colleagues, with an educational selam from [employer]. Physical exam (Primary Care) Vital Signs: Last Vital Signs Temp 97.6 F 09/06/25 09:12 Pulse 66 09/06/25 09:12 Resp 16 09/06/25 09:12 BP 137/79 09/06/25 09:12 Pulse Ox 99 09/06/25 09:12 Oxygen Delivery Method Room Air 09/06/25 09:12 BMI result Body Mass Index 30.8 Tobacco/Smoking Status: Tobacco use Status Tobacco use date assessed 09/01/25 09/06/25 09:15 Patient Tobacco Use Status Former Tobacco user 09/06/25 09:15 Tobacco use type Cigarette 09/06/25 09:15 e-Cigarette/Vaping Use Never Used 09/06/25 09:15 PHQ-9: PHQ-9 Score PHQ-9: Total score 6 09/06/25 09:52 Depression Screening Interpretation: Positive Thrive Assessment: Date of Thrive Assessment Date Thrive assessed 12/22/24 09/06/25 09:15 Currently or been in a relationship where the following occur: No concerns reported Office Procedures Flu Questionnaire Does the patient have a severe egg allergy?: No Does the patient have severe life threatening allergies?: No Does the patient have a fever or illness today?: No Has the patient ever had Guillain-Stafford Syndrome?: No Has the patient ever had any past reaction to a flu shot?: No Immunizations Fluarix [id number] (PF) 45 mcg (15 mcg x 3)/0.5 mL IM syringe Performing Provider: Andrey Tong MD [place] [facility] [place] [facility] Documented (not given) by: CAROLINA Sanchez on 09/06/25 09:53 Reason Not Given: Patient Refused Coding Level of Care Code Est Pt Level 3 (17081) Diagnoses Viral upper respiratory tract infection J06.9 URI type: unspecified viral URI Assessment & Plan Assessment & Plan (1) URI (upper respiratory infection): Code(s): J06.9 - Acute upper respiratory infection, unspecified Category: Medical Qualifiers: URI type: unspecified viral URI Qualified Code(s): J06.9 - Acute upper respiratory infection, unspecified Plan: History of Present Illness - The patient is a 59-year-old male presenting with a follow-up for a recent respiratory illness. - He reports feeling better and that his symptoms have improved with treatment. - A recent chest x-ray was unremarkable. - He has completed courses of prednisone and antibiotics. - He was prescribed Symbicort, which he takes every 12 hours and reports is helping. - He was initially using his albuterol inhaler in addition to the Symbicort, but the need for it is decreasing. - The patient declines the influenza vaccination. Social History - Employment: The patient works and requested a work excuse from saturday until the day of the visit. Review of Systems - Respiratory: Reports his condition is feeling better and notes a decreased need for his rescue inhaler. Physical Exam General: Cooperative and healthy appearing Nutritional Appearance: Well nourished Orientation/consciousness: Patient oriented x3 Limitations: No limitations Head: Normal to inspection General: Appearance normal, both eyes and all related structures Neck: Normal visual inspection Chest: Normal palpation of entire chest wall Respiratory: Patient is using Symbicort and albuterol inhalers. Advised to gargle after using Symbicort to prevent oral yeast infection. ormal respiratory effort Neurology: Patient oriented x3 Results - Imaging: A recent chest X-ray was fine. Plan - The patient will continue to use his Symbicort inhaler twice a day. - He was advised that the need for his albuterol rescue inhaler should decrease with continued use of Symbicort. - He was instructed to gargle with water and spit it out after each use of the Symbicort inhaler to prevent oral thrush. - A work excuse note will be provided for the period from saturday until today. - The patient declined the influenza vaccination at this visit. Discussion Notes I saw the patient for a follow-up of his recent respiratory illness and noted he is feeling better. I reviewed his normal chest x-ray results with him and confirmed he has completed his courses of prednisone and antibiotics. We discussed his medications, and I reinforced that the need for his albuterol rescue inhaler should diminish as he continues to use the Symbicort inhaler twice daily. I educated the patient on the importance of gargling with water after using Symbicort to prevent oral yeast infections, a precaution he was previously unaware of. A work excuse was requested and will be provided. Patient Instructions - Continue using your Symbicort inhaler twice a day, about 12 hours apart. - After each time you use your Symbicort inhaler, gargle with water and then spit it out to prevent getting a yeast infection in your mouth. - Your need to use your other inhaler, albuterol, should become less as you continue to use Symbicort. - You have finished taking all of your prednisone and antibiotic pills. - We will provide you with a work excuse for your absence from last Saturday to today. Orders: Orders Influenza [id number] Immunization Today Z23 - Encounter for immunization
== END ==
LOC: HO.HMCSH 08:46
PROVIDERS: PCP Physician Assistant; Visit Provider Internal Medicine
DX: Z23 Encounter for immunization (principal); J06.9 Acute upper respiratory infection, unspecified